=== PATIENT | female | born 1985 | race African-American/Black ===

== ENCOUNTER 2016-08-12 22:51 | Emergency (ER) | payer SELFPAY ==
[2016-08-13] MEDS ORDERED: ACETAMINOPHEN 325 MG TABLET PO ONE (01:07)
[2016-08-13] MEDS ORDERED: ONDANSETRON ODT 4 MG TAB (6 TAB/DSPK) PO PRN (02:05)
[2016-08-13] MEDS ORDERED: HYDROCODONE/ACETAMINOPHEN 5-325 MG 6 TAB/DSPK PO PRN (02:05)
--- NOTE | 2016-08-13 02:05 | ER Document Report ---
ED General - General Chief Complaint: Sinus Pain Stated Complaint: SORE THROAT/HEADACHE Notes: Patient is a 31-year-old female with past medical history of chronic sinusitis who presents with several years of postnasal drip, bilateral sinus pressure that is worsened over the last 3-4 days. States she's been trying over-the- counter pain medications with no relief of her pain. Nothing worsens her symptoms. Denies any associated fever, difficulty breathing, passing out, or altered mental status. She describes the pain as being a constant, dull throbbing pain over her bilateral maxillary sinuses. She's not see her primary care physician regarding today's concerns. TRAVEL OUTSIDE OF THE [place] IN LAST 30 DAYS: No - Related Data Allergies/Adverse Reactions: clindamycin [Clindamycin] Allergy (Intermediate, Verified 09/20/15 18:33) burning, SOB cephalexin [Cephalexin] Allergy (Verified 09/20/15 18:33) Penicillins Allergy (Verified 09/20/15 18:33) naproxen [From Naprosyn] Adverse Reaction (Verified 09/20/15 18:33) VOMITING Past Medical History - General Information source: Patient - Social History Smoking Status: Current Every Day Smoker Frequency of alcohol use: None Drug Abuse: None Lives with: Spouse/Significant other Family History: Reviewed & Not Pertinent Patient has suicidal ideation: No Patient has homicidal ideation: No Neurological Medical History: Denies: Hx Migraine Renal/ Medical History: Denies: Hx Peritoneal Dialysis Surgical Hx: Negative - Immunizations Hx Diphtheria, Pertussis, Tetanus Vaccination: Yes Review of Systems - Review of Systems Notes: Constitutional: Negative for fever. HENT: Negative for sore throat. Positive for sinus pain Eyes: Negative for visual changes. Cardiovascular: Negative for chest pain. Respiratory: Negative for shortness of breath. Gastrointestinal: Negative for abdominal pain, vomiting or diarrhea. Genitourinary: Negative for dysuria. Musculoskeletal: Negative for back pain. Skin: Negative for rash. Neurological: Negative for headaches, weakness or numbness. 10 point ROS negative except as marked above and in HPI. Physical Exam - Vital signs Vitals: Temp Pulse Resp BP 98.0 F 89 18 136/74 H 08/12/16 23:14 08/12/16 23:14 08/12/16 23:14 08/12/16 23:14 Interpretation: Normal Notes: PHYSICAL EXAMINATION: GENERAL: Well-appearing, well-nourished and in no acute distress. HEAD: Atraumatic, normocephalic. EYES: Pupils equal round and reactive to light, extraocular movements intact, sclera anicteric, conjunctiva are normal. ENT: nares patent, nasal turbinates erythematous bilaterally, pain on palpation of the maxillary sinus bilaterally; oropharynx clear without exudates. Moist mucous membranes. NECK: Normal range of motion, supple without lymphadenopathy LUNGS: Breath sounds clear to auscultation bilaterally and equal. No wheezes rales or rhonchi. HEART: Regular rate and rhythm without murmurs ABDOMEN: Soft, nontender, normoactive bowel sounds. No guarding, no rebound. No masses appreciated. EXTREMITIES: Normal range of motion, no pitting or edema. No cyanosis. NEUROLOGICAL: No focal neurological deficits. Moves all extremities spontaneously and on command. PSYCH: Normal mood, normal affect. SKIN: Warm, Dry, normal turgor, no rashes or lesions noted. Course - Re-evaluation Re-evalutation: 08/13/16 02:02 Patient presents with bilateral sinus pain, postnasal drip, and nasal congestion has been ongoing for months getting worse over the last several weeks. She is overall nontoxic in appearance, vitals within normal limits. No acute distress. Nasal turbinates are engorged and erythematous bilaterally. She has pain on palpation of the bilateral maxillary sinuses. Will trial a course of antibiotics although I discussed with patient that there is a very good chance that this is allergic versus viral in origin. I have also recommended she follow-up with ENT given that her symptoms have been so chronic in duration. At this time will discharge with return precautions and follow-up recommendations. Verbal discharge instructions given a the bedside and opportunity for questions given. Medication warnings reviewed. Patient is in agreement with this plan and has verbalized understanding of return precautions and the need for primary care follow-up in the next 24-72 hours. - Vital Signs Vital signs: Temp Pulse Resp BP Pulse Ox 98.0 F 89 18 136/74 H 08/12/16 23:14 08/12/16 23:14 08/12/16 23:14 08/12/16 23:14 Discharge - Discharge Clinical Impression: Sinusitis Qualifiers: Sinusitis location: maxillary Chronicity: chronic Qualified Code(s): J32.0 - Chronic maxillary sinusitis Condition: Good Disposition: HOME, SELF-CARE Additional Instructions: Please take antibiotic as directed. Follow-up with the ear, nose and throat specialist at your earliest ability. Return if you develop a fever of greater than 101F, pass out, have worsening pain, or have any other symptoms that are concerning to you. Prescriptions: Doxycycline Hyclate 100 mg PO BID #14 capsule
[2016-08-13 02:48] VITALS: BP 133/78
== END 2016-08-13 02:30 | disposition home or self-care (01) ==
LOC: ER 22:51
DX: J32.0 Chronic maxillary sinusitis (principal); R51 Headache; J02.9 Acute pharyngitis, unspecified; F17.210 Nicotine dependence, cigarettes, uncomplicated
CPT/HCPCS: 99282

== ENCOUNTER 2016-08-14 19:35 | Emergency (ER) | payer SELFPAY ==
[2016-08-14] MEDS ORDERED: PROMETHAZINE HCL 25 MG TABLET PO ONE (19:44)
--- NOTE | 2016-08-14 19:44 | ER Document Report ---
ED Medical Screen (RME) - General Stated Complaint: VOMITING Notes: patient is a 31 year old female p/w vomiting that started today. patient states that she felt an abscess in her mouth burst today and since then shes been throwing up. on doxycycline for sinus infection I have greeted and performed a rapid initial assessment of this patient. A comprehensive ED assessment and evaluation of the patient, analysis of test results and completion of the medical decision making process will be conducted by additional ED providers. TRAVEL OUTSIDE OF THE [place] IN LAST 30 DAYS: No - Related Data Allergies/Adverse Reactions: clindamycin [Clindamycin] Allergy (Intermediate, Verified 08/14/16 19:41) burning, SOB cephalexin [Cephalexin] Allergy (Verified 08/14/16 19:41) Penicillins Allergy (Verified 08/14/16 19:41) naproxen [From Naprosyn] Adverse Reaction (Verified 08/14/16 19:41) VOMITING Past Medical History - Social History Family history: Reviewed & Not Pertinent Neurological Medical History: Denies: Hx Migraine Renal/ Medical History: Denies: Hx Peritoneal Dialysis - Immunizations Hx Diphtheria, Pertussis, Tetanus Vaccination: Yes
[2016-08-14 19:59] LABS: ABSOLUTE BASOPHILS # (AUTO) 0.1 10^3/uL (0.0-0.2); ABSOLUTE EOSINOPHILS # (AUTO) 0.1 10^3/uL (0.0-0.6); ABSOLUTE MONOCYTES (AUTO) 0.8 10^3/uL (0.1-1.4); ABSOLUTE NEUT (AUTO) 4.9 10^3/uL (1.7-8.2); BASOPHILS % (AUTO) 0.6 % (0-2); EOSINOPHILS % (AUTO) 1.1 % (0-6); HEMATOCRIT 40.2 % (36.0-47.0); HEMOGLOBIN 12.8 g/dL (12.0-15.5); HGB HCT DIFFERENCE -1.8; LYMPHOCYTES % (AUTO) 33.7 % (13-45); MEAN CORPUSCULAR HEMOGLOBIN 24.6 pg (27.0-33.4); MEAN CORPUSCULAR HGB CONC 31.8 g/dL (32.0-36.0); MEAN CORPUSCULAR VOLUME 77 fl (80-97); MONOCYTES % (AUTO) 9.5 % (3-13); RED CELL DISTRIBUTION WIDTH 13.7 % (11.5-14.0); SEGMENTED NEUTROPHILS % (AUTO) 55.1 % (42-78); WHITE BLOOD COUNT 8.9 10^3/uL (4.0-10.5)
[2016-08-14 20:28] LABS: ALANINE AMINOTRANSFERASE 22 U/L (9-52); ALBUMIN 3.7 g/dL (3.5-5.0); ALKALINE PHOSPHATASE 81 U/L (38-126); ANION GAP 11 (5-19); ASPARTATE AMINO TRANSFERASE 20 U/L (14-36); BILIRUBIN,TOTAL 0.4 mg/dL (0.2-1.3); BLOOD UREA NITROGEN 9 mg/dL (7-20); CARBON DIOXIDE 27 mmol/L (22-30); CHLORIDE 103 mmol/L (98-107); CREATININE RESULT 0.77 mg/dL (0.52-1.25); GLUCOSE 118 mg/dL (75-110); LIPASE 116.3 U/L (23-300); POTASSIUM 3.8 mmol/L (3.6-5.0); TOTAL PROTEIN 7.1 g/dL (6.3-8.2)
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
[2016-08-14 22:19] VITALS: BP 132/84
== END 2016-08-14 21:38 | disposition home or self-care (01) ==
LOC: ER 19:35
DX: K04.7 Periapical abscess without sinus (principal); R11.2 Nausea with vomiting, unspecified; F17.200 Nicotine dependence, unspecified, uncomplicated; Z88.0 Allergy status to penicillin; Z88.3 Allergy status to other anti-infective agents
CPT/HCPCS: 36415; 80053; 83690; 85025; 99283

== ENCOUNTER 2016-10-29 18:57 | Emergency (ER) | payer SELFPAY ==
[2016-10-29 19:05] VITALS: BP 134/77
[2016-10-29] MEDS ORDERED: ONDANSETRON 4 MG TAB.RAPDIS PO ONE (19:58)
--- NOTE | 2016-10-29 19:58 | ER Document Report ---
ED Medical Screen (RME) - General Chief Complaint: Vomiting Stated Complaint: HEADACHE Mode of Arrival: Ambulatory Information source: Patient Notes: This is a 31-year-old female who presents to the ER for nausea vomiting and headache. She states that the symptoms have been recurrent for the past several months and that she's been seen before for the same. Today she states that she developed a left-sided headache and about 1500. She took 2 BC powders and the pain resolved in about an hour and a half. However at that time she began having nausea and vomiting. Her last oral intake was a Tanja's meal prior to the headache. She is now feeling somewhat better however she is concerned that these vomiting episodes continue to recur. She states she cannot follow-up with a primary care physician because she has not injured it. She denies any fevers or chills. I have greeted and performed a rapid initial assessment of this patient. A comprehensive ED assessment and evaluation of the patient, analysis of test results and completion of the medical decision making process will be conducted by additional ED providers. TRAVEL OUTSIDE OF THE [place] IN LAST 30 DAYS: No - Related Data Allergies/Adverse Reactions: clindamycin [Clindamycin] Allergy (Intermediate, Verified 08/14/16 19:41) burning, SOB cephalexin [Cephalexin] Allergy (Verified 08/14/16 19:41) Penicillins Allergy (Verified 08/14/16 19:41) naproxen [From Naprosyn] Adverse Reaction (Verified 08/14/16 19:41) VOMITING Past Medical History - Social History Family history: Reviewed & Not Pertinent Neurological Medical History: Denies: Hx Migraine Renal/ Medical History: Denies: Hx Peritoneal Dialysis - Immunizations Hx Diphtheria, Pertussis, Tetanus Vaccination: Yes Physical Exam - Vital signs Vitals: Temp Pulse Resp BP Pulse Ox 98.5 F 80 16 134/77 H 98 10/29/16 19:02 10/29/16 19:02 10/29/16 19:02 10/29/16 19:02 10/29/16 19:02 Course - Vital Signs Vital signs: Temp Pulse Resp BP Pulse Ox 98.5 F 80 16 134/77 H 98 10/29/16 19:02 10/29/16 19:02 10/29/16 19:02 10/29/16 19:02 10/29/16 19:02
[2016-10-29 20:25] LABS: APPEARANCE,URINE SLIGHTLY-CLOUDY; BILIRUBIN,URINE NEGATIVE (NEGATIVE); GLUCOSE, URINE NEGATIVE (NEGATIVE); KETONES,URINE NEGATIVE (NEGATIVE); LEUKOCYTE ESTERASE,URINE MODERATE (NEGATIVE); NITRITE,URINE NEGATIVE (NEGATIVE); PROTEIN,URINE NEGATIVE (NEGATIVE); UROBILINOGEN,URINE NEGATIVE mg/dL (<2.0)
== END 2016-10-29 23:00 | disposition left against medical advice (07) ==
LOC: ER 18:57
DX: R11.2 Nausea with vomiting, unspecified (principal); R51 Headache; Z88.0 Allergy status to penicillin; Z88.3 Allergy status to other anti-infective agents
CPT/HCPCS: 99281; 81001; S0119

== ENCOUNTER 2016-11-12 07:29 | Emergency (ER) | payer SELFPAY ==
--- NOTE | 2016-11-12 07:37 | ER Document Report ---
ED Skin Rash/Insect Bite/Abscs - General Chief Complaint: Abscess Stated Complaint: POSSIBLE ABSCESS Time Seen by Provider: 11/12/16 07:37 Mode of Arrival: Ambulatory Information source: Patient Notes: 31-year-old nondiabetic female complaining of an abscess on the right buttocks inferior to the labia majora for 3 days. Has had to have abscess incised in the past. TRAVEL OUTSIDE OF THE [place] IN LAST 30 DAYS: No - Related Data Allergies/Adverse Reactions: clindamycin [Clindamycin] Allergy (Intermediate, Verified 08/14/16 19:41) burning, SOB cephalexin [Cephalexin] Allergy (Verified 08/14/16 19:41) Penicillins Allergy (Verified 08/14/16 19:41) naproxen [From Naprosyn] Adverse Reaction (Verified 08/14/16 19:41) VOMITING Past Medical History - General Information source: Patient - Social History Smoking Status: Never Smoker Frequency of alcohol use: None Drug Abuse: None Lives with: Family Family History: Reviewed & Not Pertinent Patient has suicidal ideation: No Patient has homicidal ideation: No - Medical History Medical History: Negative Neurological Medical History: Denies: Hx Migraine Renal/ Medical History: Denies: Hx Peritoneal Dialysis Surgical Hx: Negative - Immunizations Hx Diphtheria, Pertussis, Tetanus Vaccination: Yes Review of Systems - Review of Systems Constitutional: No symptoms reported EENT: No symptoms reported Cardiovascular: No symptoms reported Respiratory: No symptoms reported Gastrointestinal: No symptoms reported Genitourinary: No symptoms reported Female Genitourinary: No symptoms reported Musculoskeletal: No symptoms reported Skin: See HPI Hematologic/Lymphatic: No symptoms reported Neurological/Psychological: No symptoms reported Physical Exam - Vital signs Vitals: Pulse Resp BP Pulse Ox 111 H 16 123/75 99 11/12/16 07:33 11/12/16 07:33 11/12/16 07:33 11/12/16 07:33 Interpretation: Normal - General General appearance: Appears well, Alert - HEENT Head: Normocephalic, Atraumatic Eyes: Normal Pupils: PERRL Neck: Supple - Respiratory Respiratory status: No respiratory distress Chest status: Nontender Breath sounds: Normal Chest palpation: Normal - Cardiovascular Rhythm: Regular Heart sounds: Normal auscultation Murmur: No - Abdominal Inspection: Normal Distension: No distension Bowel sounds: Normal Tenderness: Nontender Organomegaly: No organomegaly - Back Back: Normal, Nontender - Extremities General upper extremity: Normal inspection, Nontender, Normal color, Normal ROM , Normal temperature General lower extremity: Normal inspection, Nontender, Normal color, Normal ROM , Normal temperature, Normal weight bearing. No: Iliana's sign - Neurological Neuro grossly intact: Yes Cognition: Normal Orientation: AAOx4 Jenny Coma Scale Eye Opening: Spontaneous [place]ope Coma Scale Verbal: Oriented Jenny Coma Scale Motor: Obeys Commands Jenny Coma Scale Total: 15 Speech: Normal Motor strength normal: LUE, RUE, LLE, RLE Sensory: Normal - Psychological Associated symptoms: Normal affect, Normal mood - Skin Skin Temperature: Warm Skin Moisture: Dry Skin Color: Normal Skin irregularity: Abscess Location of irregularity: Other - right buttocks inferior to labia majora in hairline Course - Vital Signs Vital signs: Temp Pulse Resp BP Pulse Ox 98.1 F 111 H 16 123/75 99 11/12/16 08:29 11/12/16 07:33 11/12/16 07:33 11/12/16 07:33 11/12/16 07:33 Procedures - Incision and Drainage Right Buttock Time completed: 09:14 Type: Simple Anesthetic type: 1% Lidocaine mL's of anesthetic: 3 Blade size: 11 I&D procedure: Betadine prep applied Incision Method: Incision made by scalpel Amount/type of drainage: large pus and sebaceous matter Discharge - Discharge Clinical Impression: abscess I & D Condition: Good Disposition: HOME, SELF-CARE Instructions: Abscess ([facility]), Post Incision and Drainage, Trimethoprim-Sulfa ( [facility]), Warm Packs ([facility]) Additional Instructions: warm compress dry dressing to er any concerns Please complete the patient satisfaction survey if you get one, and return it.. If you do not receive a survey, then you can go to the [facility] website, [email or web address] and place your comments about your very good care. Thank you very much. It was a pleasure being your medical provider today. Prescriptions: Ibuprofen [Motrin 800 mg Tablet] 800 mg PO Q8HP PRN #30 tablet PRN Reason: Sulfamethoxazole/Trimethoprim [Sulfamethoxazole-Tmp Ds Tablet] 1 each PO BID # 14 tablet
[2016-11-12] MEDS ORDERED: SULFAMETHOXAZOLE/TRIMETHOPRIM 800-160 MG TABLET PO ONE (07:45)
[2016-11-12] MEDS ORDERED: LIDOCAINE 4%/TETRACAINE 0.5%/EPI 0.18% 5 ML TOPICAL SOLN TOP ONE (07:45)
[2016-11-12] MEDS ORDERED: IBUPROFEN 800 MG TABLET PO ONE (07:45)
[2016-11-12] MEDS ORDERED: ONDANSETRON 4 MG TAB.RAPDIS PO ONE (07:45)
[2016-11-12 09:31] VITALS: BP 127/69
== END 2016-11-12 09:31 | disposition home or self-care (01) ==
LOC: ER 07:29
PROC: 0H98XZZ Drainage of Buttock Skin, External Approach (ICD-10-PCS; principal; 2016-11-12)
DX: L02.31 Cutaneous abscess of buttock (principal); Z88.1 Allergy status to other antibiotic agents; Z88.0 Allergy status to penicillin
CPT/HCPCS: 10060; 99283; S0119; J3490

== ENCOUNTER → 2016-12-12 | Outpatient (CLI) | payer OTHER ==
[2016-12-12 12:11] LABS: ABSOLUTE EOSINOPHILS # (AUTO) 0.1 10^3/uL (0.0-0.6); ABSOLUTE LYMPHOCYTES (AUTO) 1.9 10^3/uL (0.5-4.7); ABSOLUTE MONOCYTES (AUTO) 0.3 10^3/uL (0.1-1.4); ABSOLUTE NEUT (AUTO) 3.3 10^3/uL (1.7-8.2); BASOPHILS % (AUTO) 0.7 % (0-2); EOSINOPHILS % (AUTO) 1.1 % (0-6); HEMATOCRIT 39.7 % (36.0-47.0); HEMOGLOBIN 12.4 g/dL (12.0-15.5); HGB HCT DIFFERENCE -2.5; LYMPHOCYTES % (AUTO) 33.6 % (13-45); MEAN CORPUSCULAR HEMOGLOBIN 24.5 pg (27.0-33.4); MEAN CORPUSCULAR HGB CONC 31.2 g/dL (32.0-36.0); MEAN CORPUSCULAR VOLUME 79 fl (80-97); MONOCYTES % (AUTO) 5.9 % (3-13); RED BLOOD COUNT 5.05 10^6/uL (3.72-5.28); RED CELL DISTRIBUTION WIDTH 14.4 % (11.5-14.0); SEGMENTED NEUTROPHILS % (AUTO) 58.7 % (42-78); WHITE BLOOD COUNT 5.7 10^3/uL (4.0-10.5)
[2016-12-12 12:41] LABS: ALANINE AMINOTRANSFERASE 23 U/L (9-52); ALBUMIN 3.9 g/dL (3.5-5.0); ALKALINE PHOSPHATASE 74 U/L (38-126); ANION GAP 11 (5-19); ASPARTATE AMINO TRANSFERASE 18 U/L (14-36); BILIRUBIN,DIRECT 0.3 mg/dL (0.0-0.4); BILIRUBIN,TOTAL 0.5 mg/dL (0.2-1.3); BLOOD UREA NITROGEN 7 mg/dL (7-20); CALCIUM 9.6 mg/dL (8.4-10.2); CARBON DIOXIDE 24 mmol/L (22-30); CHLORIDE 106 mmol/L (98-107); CREATININE RESULT 0.74 mg/dL (0.52-1.25); GLUCOSE 92 mg/dL (75-110); POTASSIUM 4.2 mmol/L (3.6-5.0); TOTAL PROTEIN 7.2 g/dL (6.3-8.2)
== END ==
LOC: CCC 11:02
DX: R11.0 Nausea (principal); G43.909 Migraine, unspecified, not intractable, without status migrainosus
CPT/HCPCS: 36415; 80053; 84443; 84703; 85025

== ENCOUNTER 2017-02-05 15:33 | Emergency (ER) | payer OTHER ==
[2017-02-05] MEDS ORDERED: ONDANSETRON 4 MG TAB.RAPDIS SL ONE (16:32)
[2017-02-05] MEDS ORDERED: KETOROLAC TROMETHAMINE 60 MG/2 ML SDV IM ONE (16:33)
--- NOTE | 2017-02-05 16:34 | ER Document Report ---
ED Medical Screen (RME) - General Chief Complaint: Vomiting Stated Complaint: VOMITING, HEADACHE Time Seen by Provider: 02/05/17 16:04 Mode of Arrival: Ambulatory Information source: Patient TRAVEL OUTSIDE OF THE [place] IN LAST 30 DAYS: No - HPI Patient complains to provider of: Migraine headache, nausea and vomiting Onset: Other - 3 days Notes: 02/05/17 16:34 Is a 31-year-old male who presents to the emergency room complaining of a migraine headache 3 days with nausea and vomiting that started today, she denies pain, no fever, no head injury, no sick contacts, no diarrhea - Related Data Allergies/Adverse Reactions: clindamycin [Clindamycin] Allergy (Intermediate, Verified 02/05/17 16:29) burning, SOB cephalexin [Cephalexin] Allergy (Verified 02/05/17 16:29) Penicillins Allergy (Verified 02/05/17 16:29) naproxen [From Naprosyn] Adverse Reaction (Verified 02/05/17 16:29) VOMITING Past Medical History - Social History Family history: Reviewed & Not Pertinent Neurological Medical History: Denies: Hx Migraine Renal/ Medical History: Denies: Hx Peritoneal Dialysis - Immunizations Hx Diphtheria, Pertussis, Tetanus Vaccination: Yes Physical Exam - Vital signs Vitals: Temp Pulse Resp BP Pulse Ox 98.6 F 91 14 126/90 H 100 02/05/17 15:36 02/05/17 15:36 02/05/17 15:36 02/05/17 15:36 02/05/17 15:36 Course - Vital Signs Vital signs: Temp Pulse Resp BP Pulse Ox 98.6 F 91 14 126/90 H 100 02/05/17 15:36 02/05/17 15:36 02/05/17 15:36 02/05/17 15:36 02/05/17 15:36
[2017-02-05 17:02] LABS: APPEARANCE,URINE CLOUDY; BILIRUBIN,URINE NEGATIVE (NEGATIVE); GLUCOSE, URINE NEGATIVE (NEGATIVE); KETONES,URINE NEGATIVE (NEGATIVE); LEUKOCYTE ESTERASE,URINE SMALL (NEGATIVE); NITRITE,URINE NEGATIVE (NEGATIVE); PROTEIN,URINE NEGATIVE (NEGATIVE); UROBILINOGEN,URINE NEGATIVE mg/dL (<2.0)
[2017-02-05 17:19] LABS: ABSOLUTE LYMPHOCYTES (AUTO) 1.4 10^3/uL (0.5-4.7); ABSOLUTE MONOCYTES (AUTO) 0.4 10^3/uL (0.1-1.4); ABSOLUTE NEUT (AUTO) 8.5 10^3/uL (1.7-8.2); BASOPHILS % (AUTO) 0.3 % (0-2); EOSINOPHILS % (AUTO) 0.4 % (0-6); HEMATOCRIT 39.5 % (36.0-47.0); HEMOGLOBIN 12.5 g/dL (12.0-15.5); LYMPHOCYTES % (AUTO) 13.1 % (13-45); MEAN CORPUSCULAR HGB CONC 31.6 g/dL (32.0-36.0); MEAN CORPUSCULAR VOLUME 79 fl (80-97); RED BLOOD COUNT 4.99 10^6/uL (3.72-5.28); RED CELL DISTRIBUTION WIDTH 14.6 % (11.5-14.0); SEGMENTED NEUTROPHILS % (AUTO) 82.2 % (42-78); WHITE BLOOD COUNT 10.4 10^3/uL (4.0-10.5)
[2017-02-05 17:39] LABS: ALANINE AMINOTRANSFERASE 26 U/L (9-52); ALBUMIN 4.2 g/dL (3.5-5.0); ALKALINE PHOSPHATASE 80 U/L (38-126); ANION GAP 9 (5-19); ASPARTATE AMINO TRANSFERASE 19 U/L (14-36); BILIRUBIN,DIRECT 0.2 mg/dL (0.0-0.4); BILIRUBIN,TOTAL 0.4 mg/dL (0.2-1.3); BLOOD UREA NITROGEN 4 mg/dL (7-20); CALCIUM 9.6 mg/dL (8.4-10.2); CARBON DIOXIDE 28 mmol/L (22-30); CHLORIDE 103 mmol/L (98-107); CREATININE RESULT 0.68 mg/dL (0.52-1.25); GLUCOSE 108 mg/dL (75-110); LIPASE 93.3 U/L (23-300); POTASSIUM 4.1 mmol/L (3.6-5.0); SODIUM 140.3 mmol/L (137-145); TOTAL PROTEIN 7.3 g/dL (6.3-8.2)
[2017-02-05] MEDS ORDERED: ONDANSETRON ODT 4 MG TAB (6 TAB/DSPK) PO PRN (18:22)
--- NOTE | 2017-02-05 18:23 | ER Document Report ---
ED GI/ - General Chief Complaint: Vomiting Stated Complaint: VOMITING, HEADACHE Time Seen by Provider: 02/05/17 16:04 Mode of Arrival: Ambulatory Information source: Patient TRAVEL OUTSIDE OF THE [place] IN LAST 30 DAYS: No - HPI Patient complains to provider of: Vomiting Onset: Other - 3 days Timing/Duration: Gradual, Persistent Quality of pain: Achy, Fullness, Pressure Severity at maximum: Moderate Severity in ED: Moderate Pain Level: 3 Associated symptoms: Nausea, Vomiting Exacerbated by: Denies Relieved by: Denies Notes: 02/05/17 19:19 Is a 31-year-old male who presents to the emergency room complaining of a migraine headache 3 days with nausea and vomiting that started today, she denies pain, no fever, no head injury, no sick contacts, no diarrhea - Related Data Allergies/Adverse Reactions: clindamycin [Clindamycin] Allergy (Intermediate, Verified 02/05/17 16:29) burning, SOB cephalexin [Cephalexin] Allergy (Verified 02/05/17 16:29) Penicillins Allergy (Verified 02/05/17 16:29) naproxen [From Naprosyn] Adverse Reaction (Verified 02/05/17 16:29) VOMITING Past Medical History - General Information source: Patient - Social History Smoking Status: Unknown if Ever Smoked Family History: Reviewed & Not Pertinent Neurological Medical History: Denies: Hx Migraine Renal/ Medical History: Denies: Hx Peritoneal Dialysis - Immunizations Hx Diphtheria, Pertussis, Tetanus Vaccination: Yes Review of Systems - Review of Systems Constitutional: No symptoms reported EENT: No symptoms reported Cardiovascular: No symptoms reported Respiratory: No symptoms reported Gastrointestinal: See HPI Genitourinary: No symptoms reported Female Genitourinary: No symptoms reported Musculoskeletal: No symptoms reported Skin: No symptoms reported Hematologic/Lymphatic: No symptoms reported Neurological/Psychological: See HPI -: Yes All other systems reviewed and negative Physical Exam - Vital signs Vitals: Temp Pulse Resp BP Pulse Ox 98.6 F 91 14 126/90 H 100 02/05/17 15:36 02/05/17 15:36 02/05/17 15:36 02/05/17 15:36 02/05/17 15:36 Interpretation: Normal - General General appearance: Appears well, Alert - HEENT Head: Normocephalic, Atraumatic Eyes: Normal Pupils: PERRL - Respiratory Respiratory status: No respiratory distress Chest status: Nontender Breath sounds: Normal Chest palpation: Normal - Cardiovascular Rhythm: Regular Heart sounds: Normal auscultation Murmur: No - Abdominal Inspection: Normal Distension: No distension Bowel sounds: Normal Tenderness: Nontender Organomegaly: No organomegaly - Back Back: Normal, Nontender - Extremities General upper extremity: Normal inspection, Nontender, Normal color, Normal ROM , Normal temperature General lower extremity: Normal inspection, Nontender, Normal color, Normal ROM , Normal temperature, Normal weight bearing. No: Iliana's sign - Neurological Neuro grossly intact: Yes Cognition: Normal Orientation: AAOx4 Jenny Coma Scale Eye Opening: Spontaneous [place] Coma Scale Verbal: Oriented [place] Coma Scale Motor: Obeys Commands [place] Coma Scale Total: 15 Speech: Normal Motor strength normal: LUE, RUE, LLE, RLE Sensory: Normal - Psychological Associated symptoms: Normal affect, Normal mood - Skin Skin Temperature: Warm Skin Moisture: Dry Skin Color: Normal Course - Re-evaluation Re-evalutation: 02/05/17 18:22 Patient reports feeling much better at this point in time, labs are unremarkable and were discussed with patient, she was discharged with a Zofran Dosepak and information for follow-up, advised to return if any additional concerns, patient acknowledges understanding and agreement with this plan - Vital Signs Vital signs: Temp Pulse Resp BP Pulse Ox 98.7 F 90 16 126/88 H 100 02/05/17 18:47 02/05/17 18:47 02/05/17 18:47 02/05/17 18:47 02/05/17 18:47 - Laboratory Result Diagrams: 02/05/17 17:08 02/05/17 17:08 Laboratory results interpreted by me: 02/05/17 02/05/17 02/05/17 16:50 17:08 17:08 MCV 79 L MCH 25.0 L MCHC 31.6 L RDW 14.6 H Seg Neutrophils % 82.2 H Absolute Neutrophils 8.5 H BUN 4 L Urine Blood SMALL H Ur Leukocyte Esterase SMALL H Discharge - Discharge Clinical Impression: Nausea and vomiting Qualifiers: Vomiting type: unspecified Vomiting Intractability: non-intractable Qualified Code(s): R11.2 - Nausea with vomiting, unspecified Migraine headache Qualifiers: Migraine type: unspecified Status migrainosus presence: without status migrainosus Intractability: not intractable Qualified Code(s): G43.909 - Migraine, unspecified, not intractable, without status migrainosus Condition: Stable Disposition: HOME, SELF-CARE Instructions: Antinausea Medication ([facility]), Vomiting ([facility]) Additional Instructions: Follow up with your primary care provider in one to 2 days. Return to the emergency room immediately if symptoms worsen or any additional concerns. Forms: Return to Work
[2017-02-05 19:05] VITALS: BP 126/88
== END 2017-02-05 18:47 | disposition home or self-care (01) ==
LOC: ER 15:33
DX: G43.909 Migraine, unspecified, not intractable, without status migrainosus (principal); R11.2 Nausea with vomiting, unspecified
CPT/HCPCS: 99283; 96372; 36415; 87086; 83690; 85025; 81025; 80053; 81001; J1885; S0119

== ENCOUNTER 2017-07-01 14:21 | Emergency (ER) | payer SELFPAY ==
[2017-07-01 14:45] VITALS: BP 131/65
--- NOTE | 2017-07-01 15:33 | ER Document Report ---
HPI - HPI Patient complains to provider of: Sore throat Pain Level: 4 Context: Patient is a 32-year-old female presents emergency department complaining of sinus drainage and sore throat for the past 2-3 days. She denies any sinus congestion, ear pain, fevers, chills, cough, shortness of breath, difficulty swallowing, difficulty breathing or chest pain. Patient is a smoker and does smoke marijuana. - REPRODUCTIVE Reproductive: DENIES: : Past Medical History - Social History Smoking Status: Current Every Day Smoker Family History: Reviewed & Not Pertinent Neurological Medical History: Denies: Hx Migraine Renal/ Medical History: Denies: Hx Peritoneal Dialysis - Immunizations Hx Diphtheria, Pertussis, Tetanus Vaccination: Yes Vertical Provider Document - CONSTITUTIONAL Agree With Documented VS: Yes Notes: PHYSICAL EXAM GENERAL: Alert, interacts well. HEENT: NCAT, pale conjunctiva, extraocular movements intact, pupils PERRL. external ear normal, no evidence of external auditory canal tenderness, blood/ drainage, cerumen impaction, TM intact without evidence of effusion, bulging, injection, MMM, Uvula midline. Airway patent. No evidence of tonsillar enlargement, peritonsillar abscess, retropharyngeal abscess. LUNGS: Clear to auscultation bilaterally, no wheezes, rales, or rhonchi. No respiratory distress. HEART: Regular rate and rhythm. No murmurs, gallops, or rubs. EXTREMITIES: Moves all 4 extremities spontaneously. No edema, radial and dorsalis pedis pulses 2/4 bilaterally. No cyanosis. NEUROLOGICAL: Alert and oriented x4. Normal speech. PSYCH: Normal affect, normal mood. SKIN: Warm, dry, normal turgor. No rashes or lesions noted. - INFECTION CONTROL TRAVEL OUTSIDE OF THE [place] IN LAST 30 DAYS: No - RESPIRATORY O2 Sat by Pulse Oximetry: 100 Course - Re-evaluation Re-evalutation: 07/01/17 16:28 Presentation is most consistent with a viral upper respiratory infection. Patient is overall well appearance, vitals within normal limits, well-hydrated. Patient denies any headache, neck pain, and has no evidence of meningismus on examination. Lungs are clear bilaterally. No evidence of respiratory distress. Based on clinical exam and history, I do not suspect an acute pneumonia, meningitis, strep pharyngitis, or an acute encephalitis. No laboratory or imaging testing is indicated at this time. Will discharge patient with return precautions and followup recommendations. They are in agreement this plan have verbalized understanding return precautions. - Vital Signs Vital signs: Temp Pulse Resp BP Pulse Ox 98.5 F 84 16 131/65 H 100 07/01/17 14:39 07/01/17 14:39 07/01/17 14:39 07/01/17 14:39 07/01/17 14:39 Discharge - Discharge Clinical Impression: Sore throat Condition: Good Disposition: HOME, SELF-CARE Instructions: Sore Throat ([facility]), Upper Respiratory Illness ([facility]) Additional Instructions: Please continue to take your home Claritin you can also add Mucinex DM. Please be sure to drink plenty of clear fluids. Your symptoms are most likely due to a viral infection it should resolve over the next 7-14 days. You should take zwuh-[id number] guanfacine per bottle instructions to help thin the mucus. For nasal congestion: I would recommend that you get [id number] oxymetazoline also known is afrin. Use only per bottle instructions and be sure to never use this for more than 3 days if you can develop severe rebound congestion. You may also use tylenol or ibuprofen as needed for aches and thorat discomfort. Please be sure to drink plenty of fluids and get rest. Return to the emergency department he began having difficulty breathing, chest pain, persistent vomiting, or any other symptoms that are concerning to you. Forms: Return to Work
[2017-07-01 16:22] LABS: A TYPE INFLUENZA AG NEGATIVE (NEGATIVE); B INFLUENZA AG NEGATIVE (NEGATIVE)
[2017-07-01] MEDS ORDERED: PSEUDOEPHEDRINE HCL 30 MG TABLET PO ONE (16:31)
[2017-07-01] MEDS ORDERED: GUAIFENESIN 600 MG TABLET.SA PO ONE (16:31)
== END 2017-07-01 16:48 | disposition home or self-care (01) ==
LOC: ER 14:21
DX: J02.9 Acute pharyngitis, unspecified (principal); J34.89 Other specified disorders of nose and nasal sinuses; F17.200 Nicotine dependence, unspecified, uncomplicated
CPT/HCPCS: 87070; 87077; 87804; 87880; 99283

== ENCOUNTER 2017-11-11 20:19 | Emergency (ER) | payer SELFPAY ==
--- NOTE | 2017-11-11 20:59 | ER Document Report ---
ED General - General Chief Complaint: Abdominal Pain/ LANDRUM/ N/V Stated Complaint: ABDOMINAL PAIN Time Seen by Provider: 11/11/17 20:53 Mode of Arrival: Ambulatory Information source: Patient TRAVEL OUTSIDE OF THE [place] IN LAST 30 DAYS: No - HPI Onset: This morning - FEW HOURS AFTER ARISING Onset/Duration: Gradual Quality of pain: Achy, Cramping - IN ABDOMEN, Dull Associated symptoms: Chills, Nausea, Vomiting. denies: Diarrhea Exacerbated by: Denies Relieved by: Denies Similar symptoms previously: Yes - ONCE, NOT RECENT Recently seen / treated by doctor: No - Related Data Allergies/Adverse Reactions: clindamycin [Clindamycin] Allergy (Intermediate, Verified 05/07/17 16:43) burning, SOB cephalexin [Cephalexin] Allergy (Verified 05/07/17 16:43) Penicillins Allergy (Verified 05/07/17 16:43) naproxen [From Naprosyn] Adverse Reaction (Verified 05/07/17 16:43) VOMITING Past Medical History - General Information source: Patient - Social History Smoking Status: Never Smoker Cigarette use (# per day): No Chew tobacco use (# tins/day): No Frequency of alcohol use: None Lives with: Spouse/Significant other Family History: Reviewed & Not Pertinent Patient has suicidal ideation: No Patient has homicidal ideation: No - Past Medical History Cardiac Medical History: Reports: None Pulmonary Medical History: Reports: None EENT Medical History: Reports: None Neurological Medical History: Reports: None. Denies: Hx Migraine Endocrine Medical History: Reports: None Renal/ Medical History: Reports: None. Denies: Hx Peritoneal Dialysis Malignancy Medical History: Reports: None GI Medical History: Reports: None Musculoskeltal Medical History: Reports None Psychiatric Medical History: Reports: None Surgical Hx: Negative - Immunizations Hx Diphtheria, Pertussis, Tetanus Vaccination: Yes Review of Systems - Review of Systems Constitutional: See HPI, Weight gain EENT: No symptoms reported Cardiovascular: No symptoms reported Respiratory: No symptoms reported Gastrointestinal: See HPI Genitourinary: No symptoms reported Female Genitourinary: No symptoms reported. denies: Musculoskeletal: No symptoms reported Skin: No symptoms reported Neurological/Psychological: No symptoms reported Physical Exam - Vital signs Interpretation: Normal. No: Tachycardic, Tachypneic, Febrile - General General appearance: Appears well, Alert In distress: None - HEENT Head: Normocephalic Eyes: Normal Conjunctiva: Normal Ears: Normal Nasal: Normal Mouth/Lips: Normal Mucous membranes: Normal - Respiratory Respiratory status: No respiratory distress Breath sounds: Normal - Cardiovascular Rhythm: Regular Heart sounds: Normal auscultation Murmur: No - Abdominal Inspection: Obese Bowel sounds: Hypoactive Tenderness: Tender - SLIGHT, RUQ - Back Back: Normal - Extremities General upper extremity: Normal inspection General lower extremity: Normal inspection. No: Tender, Edema - Neurological Neuro grossly intact: Yes Cognition: Normal Orientation: AAOx4 - Psychological Associated symptoms: Normal affect, Normal mood - Skin Skin Temperature: Warm Skin Moisture: Dry Skin Color: Normal Skin Turgor: Elastic Course - Re-evaluation Re-evalutation: 11/11/17 23:03 Patient reports nausea is modestly improved. Still having some intermittent abdominal cramping. Results of laboratory studies discussed. Diagnostic possibilities discussed. Treatment strategies discussed. - Laboratory Result Diagrams: 11/11/17 21:00 11/11/17 21:00 Laboratory results interpreted by me: 11/11/17 11/11/17 11/11/17 21:00 21:00 21:00 MCV 78 L MCH 24.8 L MCHC 31.6 L Total Bilirubin 0.1 L Urine Urobilinogen 2.0 H Discharge - Discharge Clinical Impression: Headache Qualifiers: Headache type: unspecified Headache chronicity pattern: acute headache Intractability: not intractable Qualified Code(s): R51 - Headache Abdominal pain Qualifiers: Abdominal location: upper abdomen, unspecified Qualified Code(s): R10.10 - Upper abdominal pain, unspecified Condition: Stable Disposition: HOME, SELF-CARE Instructions: Abdominal Pain ([facility]), Antinausea Medication ([facility]) Additional Instructions: REST, DRINK PLENTY OF FLUIDS. YOU MAY TAKE ZOFRAN IF NEEDED FOR NAUSEA CONTROL. YOU MAY TAKE TYLENOL IF NEEDED FOR PAIN. FOLLOW UP WITH YOUR PRIMARY CARE PROVIDER OR RETURN TO E.R. IF ANY WORSENING OR ANY NEW CONCERNS
[2017-11-11] MEDS ORDERED: NORMAL SALINE 500 ML IV ONE (21:09)
[2017-11-11 21:26] LABS: ABSOLUTE EOSINOPHILS # (AUTO) 0.1 10^3/uL (0.0-0.6); ABSOLUTE LYMPHOCYTES (AUTO) 1.5 10^3/uL (0.5-4.7); ABSOLUTE MONOCYTES (AUTO) 0.4 10^3/uL (0.1-1.4); ABSOLUTE NEUT (AUTO) 5.8 10^3/uL (1.7-8.2); BASOPHILS % (AUTO) 0.6 % (0-2); EOSINOPHILS % (AUTO) 0.9 % (0-6); HEMOGLOBIN 12.3 g/dL (12.0-15.5); LYMPHOCYTES % (AUTO) 19.3 % (13-45); MEAN CORPUSCULAR HEMOGLOBIN 24.8 pg (27.0-33.4); MEAN CORPUSCULAR HGB CONC 31.6 g/dL (32.0-36.0); MEAN CORPUSCULAR VOLUME 78 fl (80-97); MONOCYTES % (AUTO) 4.8 % (3-13); RED BLOOD COUNT 4.98 10^6/uL (3.72-5.28); SEGMENTED NEUTROPHILS % (AUTO) 74.4 % (42-78); TOTAL CELLS COUNTED % (AUTO) 100 %; WHITE BLOOD COUNT 7.8 10^3/uL (4.0-10.5)
[2017-11-11] MEDS ORDERED: DIPHENHYDRAMINE HCL 50 MG/ML VIAL IV ONE (21:28)
[2017-11-11] MEDS ORDERED: METOCLOPRAMIDE HCL INJ/PF 10 MG/2 ML SDV IV ONE ×2 (21:28→22:00)
[2017-11-11 21:32] LABS: ALANINE AMINOTRANSFERASE 26 U/L (9-52); ALKALINE PHOSPHATASE 72 U/L (38-126); ANION GAP 10 (5-19); ASPARTATE AMINO TRANSFERASE 19 U/L (14-36); BILIRUBIN,DIRECT 0.1 mg/dL (0.0-0.4); BILIRUBIN,TOTAL 0.1 mg/dL (0.2-1.3); BLOOD UREA NITROGEN 8 mg/dL (7-20); CALCIUM 9.6 mg/dL (8.4-10.2); CARBON DIOXIDE 27 mmol/L (22-30); CHLORIDE 106 mmol/L (98-107); GLUCOSE 108 mg/dL (75-110); LIPASE 111.9 U/L (23-300); POTASSIUM 3.9 mmol/L (3.6-5.0); SODIUM 143.4 mmol/L (137-145); TOTAL PROTEIN 7.2 g/dL (6.3-8.2)
[2017-11-11 21:45] LABS: PLATELET COUNT 176 10^3/uL (150-450)
[2017-11-11 21:48] LABS: APPEARANCE,URINE CLOUDY; BILIRUBIN,URINE NEGATIVE (NEGATIVE); COLOR,URINE YELLOW; GLUCOSE, URINE NEGATIVE (NEGATIVE); KETONES,URINE NEGATIVE (NEGATIVE); LEUKOCYTE ESTERASE,URINE NEGATIVE (NEGATIVE); NITRITE,URINE NEGATIVE (NEGATIVE); PROTEIN,URINE NEGATIVE (NEGATIVE); URINE SPECIFIC GRAVITY 1.027
[2017-11-11] MEDS ORDERED: ONDANSETRON ODT 4 MG TAB (6 TAB/ER DISP) PO PRN (23:06)
[2017-11-11 23:20] VITALS: BP 131/70
== END 2017-11-11 23:20 | disposition home or self-care (01) ==
LOC: ER 20:19
DX: R10.10 Upper abdominal pain, unspecified (principal); R10.811 Right upper quadrant abdominal tenderness; R11.2 Nausea with vomiting, unspecified; R51 Headache; R68.83 Chills (without fever); Z88.1 Allergy status to other antibiotic agents; Z88.0 Allergy status to penicillin; R63.5 Abnormal weight gain
CPT/HCPCS: 99284; 96361; 96374; 36415; 83690; 84443; 85025; 81025; 80053; 81001; J2765; J7040

== ENCOUNTER 2017-12-17 20:36 | Emergency (ER) | payer OTHER ==
[2017-12-17 20:56] VITALS: BP 124/69
--- NOTE | 2017-12-17 22:39 | ER Document Report ---
HPI - HPI Pain Level: 3 Notes: Patient is a 32-year-old female who presents to the ED complaining of nasal congestion/discharge, dry nonproductive cough, postnasal drip 3-4 days. Patient states that she is still eating and drinking without difficulties. She is still urinating normally having normal bowel movements. Patient has been using some drwy-vga-axnfsur meds for symptoms. She denies any significant past medical history including cardiopulmonary history and immunocompromised conditions. Patient denies any smoking or IV drug use. Patient requesting work note. Denies any headache, neck pain, sore throat, chest pain, palpitations, syncope, shortness of breath, wheeze, dyspnea, abdominal pain, nausea/vomiting/diarrhea, urinary retention, dysuria, hematuria, or rash. - ROS Systems Reviewed and Negative: Yes All other systems reviewed and negative - CONSTITUTIONAL Constitutional: DENIES: Fever, Chills - EENT EENT: DENIES: Sore Throat, Ear Pain, Eye problems - NEURO Neurology: REPORTS: Weakness. DENIES: Headache, Vision blurred - CARDIOVASCULAR Cardiovascular: REPORTS: Chest pain - center when coughing - RESPIRATORY Respiratory: REPORTS: Coughing. DENIES: Trouble Breathing - GASTROINTESTINAL Gastrointestinal: DENIES: Abdominal Pain, Black / Bloody Stools - REPRODUCTIVE Reproductive: DENIES: : - MUSCULOSKELETAL Musculoskeletal: DENIES: Extremity pain Past Medical History - Social History Smoking Status: Never Smoker Family History: Reviewed & Not Pertinent Patient has suicidal ideation: No Patient has homicidal ideation: No Neurological Medical History: Denies: Hx Migraine Renal/ Medical History: Denies: Hx Peritoneal Dialysis - Immunizations Hx Diphtheria, Pertussis, Tetanus Vaccination: Yes Vertical Provider Document - CONSTITUTIONAL Agree With Documented VS: Yes Notes: PHYSICAL EXAMINATION: GENERAL: Well-appearing, well-nourished and in no acute distress. A&Ox4. Answers questions appropriately. Moves comfortably w/o notable distress HEAD: Atraumatic, normocephalic. EYES: Pupils equal round and reactive to light, extraocular movements intact, sclera anicteric, conjunctiva are normal. ENT: EAC clear b/l. TM's intact b/l without erythema, fluid, or perforation. Nares patent and with clear discharge. oropharynx no erythema without exudates. No tonsilar hypertrophy without erythema or exudate. No palatine shift. Uvula midline. No tongue protrusion. No drooling, hoarseness, or airway compromise. Moist mucous membranes. No sinus tenderness. NECK: Normal range of motion, supple without lymphadenopathy. No rigidity/ meningismus. LUNGS: Breath sounds clear to auscultation bilaterally and equal. No wheezes rales or rhonchi. No retractions HEART: Regular rate and rhythm without murmurs, rubs, gallops. ABDOMEN: Soft, nontender, nondistended abdomen. No guarding, no rebound. No masses appreciated. Normal bowel sounds present. No CVA tenderness bilaterally. No hepatosplenomegaly. NEUROLOGICAL: Normal speech, normal gait. Normal sensory, motor exams PSYCH: Normal mood, normal affect. SKIN: Warm, Dry, normal turgor, no rashes or lesions noted. - INFECTION CONTROL TRAVEL OUTSIDE OF THE [place] IN LAST 30 DAYS: No Course - Re-evaluation Re-evalutation: 12/17/17 22:41 Patient is an afebrile, well-hydrated, 32-year-old female who presents to the ED with acute URI, suspect viral. Vitals are acceptable. PE is otherwise unremarkable. No labs or imaging warranted at this time based on H&P. Patient has no significant cardiopulmonary or immunocompromised medical conditions. Patient's lungs are clear to auscultation bilaterally without tachycardia, hypoxia, or tachypnea. Patient is tolerating p.o. without any difficulties. Low suspicion for any meningitis, sepsis, peritonsillar/pharyngeal abscess, respiratory compromise, severe dehydration, or other emergent systemic condition at this time. Patient is aware this condition can change from initial presentation and she needs to monitor symptoms closely. Conservative measures otherwise for symptoms. Recheck with your PCM in 3-5 days. Return to the ED with any worsening/concerning symptoms otherwise as reviewed in discharge. Patient is in agreement. - Vital Signs Vital signs: Temp Pulse Resp BP Pulse Ox 98.6 F 89 20 124/69 100 12/17/17 20:55 12/17/17 20:55 12/17/17 20:55 12/17/17 20:55 12/17/17 20:55 Discharge - Discharge Clinical Impression: Acute URI Condition: Stable Disposition: HOME, SELF-CARE Instructions: Upper Respiratory Illness ([facility]) Additional Instructions: Maintain adequate fluid intake Take meds as directed tylenol/ibuprofen as needed over the counter cold medication as needed for symptoms Humidified air may help Wash your hands regularly Wear a mask when coughing F/u: with your PCM in 3-5 days for a recheck Return to the ED with any fever, worsening pain, chest pain, palpitations, syncope, worsening LANDRUM, neck pain/stiffness, shortness of breath, wheezing, drooling, trouble swallowing/breathing, abdominal pain, n/v/d, rash, or worsening/concerning symptoms otherwise. Forms: Return to Work Referrals: [facility] [Provider Group] - Follow up as needed [facility] [Provider Group] - Follow up as needed
== END 2017-12-17 22:44 | disposition home or self-care (01) ==
LOC: ER 20:36
DX: J06.9 Acute upper respiratory infection, unspecified (principal); R07.81 Pleurodynia; R53.83 Other fatigue
CPT/HCPCS: 99283

== ENCOUNTER → 2017-12-22 | Outpatient (CLI) | payer OTHER ==
--- NOTE | 2017-12-22 14:37 | RADIOLOGY REPORT (SQ) ---
EXAM DESCRIPTION: PARANASAL SINUSES COMPLETED DATE/TIME: 12/22/2017 12:10 pm REASON FOR STUDY: CHRONIC SINUS COMPLAINTS COMPARISON: None. NUMBER OF VIEWS: Three views. TECHNIQUE: Images of the paranasal sinuses acquired. LIMITATIONS: None. FINDINGS: ORBITS: No fracture. No foreign body. SINUSES: Haziness left frontal sinus that may relate to chronic sinusitis. Remaining the sinuses are clear. No air-fluid levels. FACIAL BONES: No fracture. OTHER: No other significant finding. IMPRESSION: Possible left frontal sinusitis. TECHNICAL DOCUMENTATION: JOB ID: [id number] [employer]- All Rights Reserved Reading location - IP/workstation name: [email or web address]
== END ==
LOC: OD 11:45
PROVIDERS: ATTEND Allergy & Immunology
DX: R09.89 Other specified symptoms and signs involving the circulatory and respiratory systems (principal)
CPT/HCPCS: 70220

== ENCOUNTER 2018-01-16 08:46 | Emergency (ER) | payer OTHER ==
[2018-01-16 08:52] VITALS: BP 127/72
--- NOTE | 2018-01-16 10:00 | ER Document Report ---
HPI - HPI Patient complains to provider of: sinus pain, nose bleed, arm rash Onset: Other - 1-2 months Onset/Duration: Persistent Quality of pain: Pressure, Other - sore Pain Level: 2 Context: Patient presents emergency department with complaints of left-sided sinus pain nosebleed 2 and rash under her left arm, left axilla.. Denies fever vomiting diarrhea. Reports 2 weeks ago she was seen by her offset press assistant at [facility] [place] and prescribed cefuroxime along with nasal rinses and claritan. She reports her nose or sore yesterday so she put her finger up her nose and she has had 2 nosebleeds since then. She also complains of a headache. She reports she has had a rash under her left axilla for a couple months and was prescribed antifungal but is still not getting better. 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 IN LAST 30 DAYS: No - HEENT HEENT: Atraumatic, Normal ENT Exam, Normocephalic. negative: Conjuctival Injection, Pharyngeal Exudate, Pharyngeal Erythema, Tympanic Membrane Red, Tympanic Membrane Bulging Notes: no nasal bleeding noted, c/o left frontal sinus pain with palpation - NECK Neck: Normal Inspection, Supple. negative: Lymphadenopathy-Left, Lymphadenopathy-Right - RESPIRATORY Respiratory: Breath Sounds Normal, No Respiratory Distress - CARDIOVASCULAR Cardiovascular: Regular Rate - GI/ABDOMEN Gastrointestinal: Abdomen Soft - MUSCULOSKELETAL/EXTREMETIES Musculoskeletal/Extremeties: JESUS CHI - NEURO Level of Consciousness: Awake, Alert, Appropriate Motor/Sensory: No Motor Deficit - DERM Integumentary: Warm, Dry, Rash Adult Front & Back Diagram: 1 - fungal rash noted under left arm, no papules, no vesicles Course - Re-evaluation Re-evalutation: 01/16/18 10:08 She was instructed on the importance of continuing medication and treatment plan that her provider has already prescribed for her. Patient is nontoxic looking was instructed to follow-up with her offset press assistant on Thursday. Instructed take Tylenol for her headache. She verbalized understanding all instructions. instructed to not pick her nose. - Vital Signs Vital signs: Temp Pulse Resp BP Pulse Ox 98.7 F 83 18 127/72 H 100 01/16/18 08:51 01/16/18 08:51 01/16/18 08:51 01/16/18 08:51 01/16/18 08:51 Discharge - Discharge Clinical Impression: Sinus pain, axilla fungal rash Condition: Stable Disposition: HOME, SELF-CARE Additional Instructions: *You have been evaluated for sinus pain, nose bleed, fungal rash *Take your medication as prescribed *Take Tylenol as indicated *Follow up with your offset press assistant Thursday *Return to ED for worsening condition, changes, needs Monitor your blood pressure. Your blood pressure was elevated today. This may be because you were anxious, in pain or because you need medication. It is important to follow up with your primary care provider for full evaluation. Forms: Elevated Blood Pressure, Return to Work
== END 2018-01-16 10:05 | disposition home or self-care (01) ==
LOC: ER 08:46
DX: J34.89 Other specified disorders of nose and nasal sinuses (principal); R21 Rash and other nonspecific skin eruption; B48.8 Other specified mycoses; R51 Headache; F17.210 Nicotine dependence, cigarettes, uncomplicated
CPT/HCPCS: 99283

== ENCOUNTER 2018-02-09 19:01 | Emergency (ER) | payer OTHER | END 2018-02-09 19:05 | disposition left against medical advice (07) | LOC: ER 19:01 | DX: Z53.21 Procedure and treatment not carried out due to patient leaving prior to being seen by health care provider (principal); R51 Headache ==

== ENCOUNTER 2018-03-16 10:57 | Emergency (ER) | payer OTHER ==
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
[2018-03-16] MEDS ORDERED: ACETAMINOPHEN 325 MG TABLET PO ONE (12:17)
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
[2018-03-16 13:21] VITALS: BP 118/72
== END 2018-03-16 13:53 | disposition home or self-care (01) ==
LOC: ER 10:57
DX: S16.1XXA Strain of muscle, fascia and tendon at neck level, initial encounter (principal); R51 Headache; M54.2 Cervicalgia; V49.40XA Driver injured in collision with unspecified motor vehicles in traffic accident, initial encounter
CPT/HCPCS: 70450; 72125; 99284

== ENCOUNTER 2018-05-08 04:14 | Emergency (ER) | payer SELFPAY ==
[2018-05-08] MEDS ORDERED: ONDANSETRON HCL INJ/PF 4 MG/2 ML SDV IV ONE (04:34)
[2018-05-08] MEDS ORDERED: NORMAL SALINE 1000 ML 1,000 ML IV ONE (04:34)
--- NOTE | 2018-05-08 04:51 | ER Document Report ---
ED GI/ - General Chief Complaint: Nausea/Vomiting Stated Complaint: VOMITING Time Seen by Provider: 05/08/18 04:34 Notes: Patient is a 33-year-old female presenting to the emergency department complaining of vomiting for the last 3 days. Patient states she has had 4 episodes of emesis each day for the last 3 days is denying any blood. Patient is denying diarrhea. Patient is saying she has a subjective fever. And left lower abdominal pain. Patient states vomiting initially started and then her left lower abdominal pain started. Patient is denying dysuria, vaginal discharge, chest pain, shortness of breath. Past medical history: None Medications: Zyrtec Allergies: Clindamycin, Keflex, penicillin, naproxen Surgical history: None Patient does admit to cigarette smoking, denies illicit drug use, denies EtOH use Patient's last menstrual period was 03/10/2018 TRAVEL OUTSIDE OF THE [place] IN LAST 30 DAYS: No - Related Data Allergies/Adverse Reactions: clindamycin [Clindamycin] Allergy (Intermediate, Verified 05/08/18 04:36) burning, SOB cephalexin [Cephalexin] Allergy (Verified 05/08/18 04:36) Penicillins Allergy (Verified 05/08/18 04:36) naproxen [From Naprosyn] Adverse Reaction (Verified 05/08/18 04:36) VOMITING Past Medical History - General Information source: Patient - Social History Smoking Status: Current Every Day Smoker Lives with: Family Family History: Reviewed & Not Pertinent Patient has suicidal ideation: No Patient has homicidal ideation: No Neurological Medical History: Denies: Hx Migraine Renal/ Medical History: Denies: Hx Peritoneal Dialysis - Immunizations Hx Diphtheria, Pertussis, Tetanus Vaccination: Yes Review of Systems - Review of Systems Constitutional: See HPI EENT: No symptoms reported Cardiovascular: See HPI Respiratory: No symptoms reported Gastrointestinal: See HPI Genitourinary: See HPI Female Genitourinary: See HPI Musculoskeletal: No symptoms reported Skin: No symptoms reported Hematologic/Lymphatic: No symptoms reported Neurological/Psychological: No symptoms reported Physical Exam - Vital signs Vitals: Temp Pulse Resp BP Pulse Ox 98.2 F 95 14 129/69 H 98 05/08/18 04:15 05/08/18 04:15 05/08/18 04:15 05/08/18 04:15 05/08/18 04:15 - Notes Notes: GENERAL: Alert, interacts well. No acute distress. HEAD: Normocephalic, atraumatic. EYES: Pupils equal, round, and reactive to light. Extraocular movements intact. ENT: Oral mucosa moist, tongue midline. NECK: Full range of motion. Supple. Trachea midline. LUNGS: Clear to auscultation bilaterally, no wheezes, rales, or rhonchi. No respiratory distress. HEART: Regular rate and rhythm. No murmur ABDOMEN: Soft, non-tender. Non-distended. Bowel sounds present in all 4 quadrants. Khan sign negative, no McBurney's point tenderness. Pain upon palpation left upper quadrant. No pain palpation left lower quadrant or suprapubic area. EXTREMITIES: Moves all 4 extremities spontaneously. No edema, normal radial and dorsalis pedis pulses bilaterally. No cyanosis. BACK: no cervical, thoracic, lumbar midline tenderness. No saddle anesthesia, normal distal neurovascular exam. No CVA tenderness bilaterally NEUROLOGICAL: Alert and oriented x3. Normal speech. cranial nerves II through XII grossly intact PSYCH: Normal affect, normal mood. SKIN: Warm, dry, normal turgor. No rashes or lesions noted. Course - Re-evaluation Re-evalutation: 05/08/18 05:54 HCG came back negative. Upon reassessment patient denies abdominal pain. Patient states she does not feel as nauseated as she did upon arrival and feels better overall. 05/08/18 06:58 : HCG was 255. Patient continues to deny abdominal pain. Patient has not vomited since arriving to the emergency department. Discussed positive test in the ED and need to follow-up with [facility]. Close return precautions discussed. - Vital Signs Vital signs: Temp Pulse Resp BP Pulse Ox 98.2 F 95 14 129/69 H 98 05/08/18 04:15 05/08/18 04:15 05/08/18 04:15 05/08/18 04:15 05/08/18 04:15 - Laboratory Result Diagrams: 05/08/18 04:45 05/08/18 04:45 Laboratory results interpreted by me: 05/08/18 05/08/18 05/08/18 04:45 04:45 04:45 MCV 78 L MCH 25.2 L RDW 14.2 H Beta HCG, Quant 255.18 H Urine Ketones TRACE H Urine HCG, Qual POSITIVE H Discharge - Discharge Clinical Impression: Positive test Nausea & vomiting Qualifiers: Vomiting type: unspecified Vomiting Intractability: non-intractable Qualified Code(s): R11.2 - Nausea with vomiting, unspecified Condition: Stable Disposition: HOME, SELF-CARE Instructions: Vomiting ([facility]), Intravenous (IV) Fluids ([facility]) Additional Instructions: As we discussed your test in the emergency department was positive. Your hormone levels are still very low at this time. You should follow-up with your primary care or [facility] for continued care. Please return to the emergency room should you develop any abdominal pain or have any vaginal bleeding or discharge. Please return to the emergency room for any other concerning symptoms. Referrals: MITCHELL JACKSON MD [ACTIVE STAFF] - Follow up as needed
[2018-05-08 05:07] LABS: APPEARANCE,URINE CLOUDY; BILIRUBIN,URINE NEGATIVE (NEGATIVE); COLOR,URINE YELLOW; GLUCOSE, URINE NEGATIVE (NEGATIVE); KETONES,URINE TRACE mg/dL (NEGATIVE); LEUKOCYTE ESTERASE,URINE NEGATIVE (NEGATIVE); NITRITE,URINE NEGATIVE (NEGATIVE); PROTEIN,URINE NEGATIVE (NEGATIVE); URINE SPECIFIC GRAVITY 1.016; UROBILINOGEN,URINE NEGATIVE mg/dL (<2.0)
[2018-05-08 05:27] LABS: TOTAL CELLS COUNTED % (AUTO) 100 %
[2018-05-08 05:31] LABS: ABSOLUTE EOSINOPHILS # (AUTO) 0.1 10^3/uL (0.0-0.6); ABSOLUTE LYMPHOCYTES (AUTO) 2.4 10^3/uL (0.5-4.7); ABSOLUTE MONOCYTES (AUTO) 0.6 10^3/uL (0.1-1.4); ABSOLUTE NEUT (AUTO) 5.1 10^3/uL (1.7-8.2); BASOPHILS % (AUTO) 0.5 % (0-2); EOSINOPHILS % (AUTO) 1.7 % (0-6); HEMATOCRIT 37.2 % (36.0-47.0); LYMPHOCYTES % (AUTO) 28.8 % (13-45); MEAN CORPUSCULAR HEMOGLOBIN 25.2 pg (27.0-33.4); MEAN CORPUSCULAR HGB CONC 32.3 g/dL (32.0-36.0); MEAN CORPUSCULAR VOLUME 78 fl (80-97); PLATELET COUNT 159 10^3/uL (150-450); RED BLOOD COUNT 4.77 10^6/uL (3.72-5.28); RED CELL DISTRIBUTION WIDTH 14.2 % (11.5-14.0); WHITE BLOOD COUNT 8.2 10^3/uL (4.0-10.5)
[2018-05-08 05:35] LABS: ALANINE AMINOTRANSFERASE 12 U/L (9-52); ALBUMIN 3.5 g/dL (3.5-5.0); ALKALINE PHOSPHATASE 61 U/L (38-126); ANION GAP 10 (5-19); ASPARTATE AMINO TRANSFERASE 21 U/L (14-36); BILIRUBIN,DIRECT 0.1 mg/dL (0.0-0.4); BILIRUBIN,TOTAL 0.5 mg/dL (0.2-1.3); BLOOD UREA NITROGEN 8 mg/dL (7-20); CALCIUM 9.6 mg/dL (8.4-10.2); CARBON DIOXIDE 23 mmol/L (22-30); CHLORIDE 107 mmol/L (98-107); GLUCOSE 107 mg/dL (75-110); LIPASE 96.3 U/L (23-300); POTASSIUM 3.9 mmol/L (3.6-5.0); SODIUM 139.6 mmol/L (137-145); TOTAL PROTEIN 6.4 g/dL (6.3-8.2)
[2018-05-08 07:08] VITALS: BP 122/68
== END 2018-05-08 07:08 | disposition home or self-care (01) ==
LOC: ER 04:14
DX: R11.2 Nausea with vomiting, unspecified (principal); Z32.01 Encounter for pregnancy test, result positive; R10.32 Left lower quadrant pain; R10.812 Left upper quadrant abdominal tenderness; F17.210 Nicotine dependence, cigarettes, uncomplicated; Z79.899 Other long term (current) drug therapy; Z88.1 Allergy status to other antibiotic agents; Z88.0 Allergy status to penicillin; Z88.8 Allergy status to other drugs, medicaments and biological substances
CPT/HCPCS: 99283; 96361; 96374; 36415; 84702; 83690; 85025; 81025; 80053; 81001; J2405; J7030

== ENCOUNTER 2018-05-17 20:56 | Emergency (ER) | payer MEDICAID ==
[2018-05-17] MEDS ORDERED: ONDANSETRON HCL INJ/PF 4 MG/2 ML SDV IV ONE (22:56)
--- NOTE | 2018-05-17 22:56 | ER Document Report ---
ED General - General Chief Complaint: Vag Bleeding, +preg <12wks Stated Complaint: VAGINAL BLEEDING Time Seen by Provider: 05/17/18 22:27 Mode of Arrival: Ambulatory Information source: Patient, [facility] Records Notes: 33-year-old female at approximately 9 weeks and 5 days per last menstrual period presents with complaint of vaginal bleeding and cramping that started 3 hours prior to arrival. Patient states that she went to the bathroom earlier today and noticed some bright red blood when she wiped. She states shortly afterwards she started to experience significant lower abdominal cramping. She states that she has had no additional bleeding but the cramping has gotten worse. She has had nausea without vomiting. She denies any fever, chills, dysuria, hematuria. She has been seen by the health department but has not had a ultrasound confirming an IUP as of yet. TRAVEL OUTSIDE OF THE [place] IN LAST 30 DAYS: No - HPI Onset: Just prior to arrival Onset/Duration: Sudden Quality of pain: Cramping Severity: Mild Associated symptoms: Nonproductive cough, Nausea. denies: Chest pain, Fever, Vomiting, Shortness of breath, Sweating Exacerbated by: Denies Relieved by: Denies Similar symptoms previously: No Recently seen / treated by doctor: Yes - Related Data Allergies/Adverse Reactions: clindamycin [Clindamycin] Allergy (Intermediate, Verified 05/08/18 04:36) burning, SOB cephalexin [Cephalexin] Allergy (Verified 05/08/18 04:36) Penicillins Allergy (Verified 05/08/18 04:36) naproxen [From Naprosyn] Adverse Reaction (Verified 05/08/18 04:36) VOMITING Past Medical History - General Information source: Patient, [facility] Records - Social History Smoking Status: Never Smoker Frequency of alcohol use: None Drug Abuse: None Lives with: Spouse/Significant other Family History: Reviewed & Not Pertinent Patient has suicidal ideation: No Patient has homicidal ideation: No - Medical History Medical History: Negative Neurological Medical History: Denies: Hx Migraine Renal/ Medical History: Denies: Hx Peritoneal Dialysis - Immunizations Hx Diphtheria, Pertussis, Tetanus Vaccination: Yes Review of Systems - Review of Systems Notes: REVIEW OF SYSTEMS: CONSTITUTIONAL : Denies fever, chills, or sweats. Denies recent illness. Denies weight loss, recent hospitalizations. EENT: Denies visual changes, eye pain. Denies sore throat, oral lesions, difficulty swallowing. CARDIOVASCULAR: Denies chest pain. Denies palpitations. Denies lower extremity edema. RESPIRATORY: Denies cough. Denies shortness of breath, wheezing. GASTROINTESTINAL: Denies abdominal distention. Denies vomiting, or diarrhea. Denies blood in vomitus, stools, or per rectum. Denies black, tarry stools. Denies constipation. GENITOURINARY: Denies difficulty urinating, painful urination, frequency, blood in urine, or vaginal discharge. MUSCULOSKELETAL: Denies back or neck pain or stiffness. Denies joint pain or swelling. SKIN: Denies rash, lesions or sores. HEMATOLOGIC : Denies easy bruising or bleeding. LYMPHATIC: Denies swollen glands. NEUROLOGICAL: Denies confusion or altered mental status. Denies loss of consciousness. Denies dizziness or lightheadedness. Denies headache. Denies weakness or paralysis. Denies problems difficulty with ambulation, slurred speech. Denies sensory loss, numbness, or tingling. Denies seizures. PSYCHIATRIC: Denies anxiety or stress. Denies depression, suicidal ideation, or homicidal ideation. Denies visual or auditory hallucinations. Physical Exam - Vital signs Vitals: Temp Pulse Resp BP Pulse Ox 97.4 F 111 H 16 131/79 H 100 05/17/18 20:59 05/17/18 20:59 05/17/18 20:59 05/17/18 20:59 05/17/18 20:59 - Notes Notes: PHYSICAL EXAMINATION: GENERAL: Well-appearing, well-nourished and in no acute distress. HEAD: Atraumatic, normocephalic. EYES: Pupils equal round and reactive to light, extraocular movements intact, conjunctiva are normal. ENT: Nares patent, oropharynx clear without exudates. Moist mucous membranes. NECK: Normal range of motion, supple without lymphadenopathy LUNGS: Breath sounds clear to auscultation bilaterally and equal. No wheezes rales or rhonchi. HEART: Regular rate and rhythm without murmurs ABDOMEN: Soft, nontender, nondistended abdomen. No guarding, no rebound. No masses appreciated. Female : Scant bleeding, no discharge, no cervical motion tenderness, no external vaginal lesions, no vaginal lacerations. Musculoskeletal: Normal range of motion, no pitting or edema. No cyanosis. NEUROLOGICAL: Cranial nerves grossly intact. Normal speech, normal gait. Normal sensory, motor exams PSYCH: Normal mood, normal affect. SKIN: Warm, Dry, normal turgor, no rashes or lesions noted. Course - Re-evaluation Re-evalutation: 05/18/18 00:20 Laboratory 05/17/18 05/17/18 05/17/18 23:22 23:22 23:22 WBC 7.1 RBC 5.00 Hgb 12.5 Hct 38.8 MCV 78 L MCH 25.0 L MCHC 32.2 RDW 14.2 H Plt Count 192 Seg Neutrophils % 65.4 Lymphocytes % 23.5 Monocytes % 9.3 Eosinophils % 1.5 Basophils % 0.3 Absolute Neutrophils 4.6 Absolute Lymphocytes 1.7 Absolute Monocytes 0.7 Absolute Eosinophils 0.1 Absolute Basophils 0.0 Beta HCG, Quant 5363.00 H Total Beta HCG POSITIVE Blood Type A POSITIVE Rhogam Indicated RHOGAM NOT INDICATED Obstetrics Ultrasound 05/17/18 23:00 IMPRESSION: 1. A gestational sac is identified within the endometrium with an estimated gestational age of 5 weeks, 2 days by mean sac diameter. No pole is identified at this time. Differential considerations include early normal and anembryonic . Close continued clinical, laboratory, and sonographic follow-up recommended. 05/18/18 05:35 33-year-old female at approximately 9 weeks and 5 days per last menstrual period presents with complaint of vaginal bleeding and cramping that started 3 hours prior to arrival. Patient states that she went to the bathroom earlier today and noticed some bright red blood when she wiped. She states shortly afterwards she started to experience significant lower abdominal cramping. She states that she has had no additional bleeding but the cramping has gotten worse. She has had nausea without vomiting. She denies any fever, chills, dysuria, hematuria. She has been seen by the health department but has not had a ultrasound confirming an IUP as of yet. Vital signs reviewed upon arrival. Patient does not appear toxic or dehydrated. She is in no acute distress. CBC is without leukocytosis, anemia. Patient does have a hCG quant of over 5000 when seen approximately 1 week ago her quant at that time was only 200. Patient is Rh+ and does not require RhoGam. Transvaginal ultrasound was performed and did show a gestational sac dating approximately 5 weeks. No pole was identified. If the patient's dates are correct then this is likely an an embryonic . If patient's dates are off then this just could be a normal early intrauterine . I did discuss these findings with the patient. She was provided copies of her ultrasound report. She is due to be seen at the health department tomorrow for an ultrasound but I told her that it is unlikely that that would show anything different from today's ultrasound. She was encouraged to keep the appointment and showed them today's workup. She was also advised that if they do not provide repeat blood testing in 48 hours that she should return to the hospital for a repeat hCG. She was also encouraged to ask if a repeat ultrasound could be done in 1 week instead of tomorrow to avoid returning to the emergency department. Patient was advised that if she experienced increased pain, bleeding that she should return to the emergency department immediately. She does express understanding of this. Patient was discharged home with Zofran on as needed for cramping. - Vital Signs Vital signs: Temp Pulse Resp BP Pulse Ox 98.5 F 82 18 120/59 L 99 05/18/18 02:20 05/18/18 02:20 05/18/18 02:20 05/18/18 02:20 05/18/18 02:20 - Laboratory Result Diagrams: 05/17/18 23:22 Laboratory results interpreted by me: 05/17/18 05/17/18 05/18/18 23:22 23:22 01:07 MCV 78 L MCH 25.0 L RDW 14.2 H Beta HCG, Quant 5363.00 H Urine Ketones 20 H Urine Blood MODERATE H Urine Urobilinogen 2.0 H - Diagnostic Test Radiology reviewed: Image reviewed, Reports reviewed Discharge - Discharge Clinical Impression: Vaginal bleeding during , Elevated blood pressure reading Pelvic pain affecting Qualifiers: Trimester: first trimester Qualified Code(s): O26.891 - Other specified related conditions, first trimester Condition: Good Disposition: HOME, SELF-CARE Instructions: Bleeding During Early ([facility]), Threatened Miscarriage ( [facility]), Vaginosis, Bacterial ([facility]) Additional Instructions: You must return to the hospital in 48 hours for repeat lab work. return in one week for repeat ultrasound. Your ultrasound today does not show a living intrauterine . Your ultrasound shows a gestational sac dated at approximately 5 weeks. Please follow closely with your primary care [employer]. Please return if you develop severe abdominal pain, bleeding that goes through more than 2 pads for more than 2 hours, pass out, or have any other symptoms that are concerning to you. Please follow-up closely with your OBGYN regarding todays visit. You are being treated for bacterial vaginosis, an overgrowth of normal bacteria in the vagina. You are being sent home on an antibiotic called metronidazole. Take exactly as directed. Never drink alcohol while taking this antibiotic. Please return if you develop abdominal pain, fever greater than 101F, some vomiting, or any other symptoms that are concerning to you. Prescriptions: Metronidazole [Metrogel 0.75% Vaginal Gel] 5 applic VG QHS #1 tube Ondansetron [Zofran Odt 4 mg Tablet] 1 tab PO Q4H PRN #15 tab.rapdis PRN Reason: For Nausea/Vomiting Forms: Elevated Blood Pressure, Follow-Up Laboratory Testing Referrals: JUAN JACKSON MD [ACTIVE STAFF] - Follow up in 3-5 days
[2018-05-17 23:40] LABS: ABSOLUTE EOSINOPHILS # (AUTO) 0.1 10^3/uL (0.0-0.6); ABSOLUTE LYMPHOCYTES (AUTO) 1.7 10^3/uL (0.5-4.7); ABSOLUTE MONOCYTES (AUTO) 0.7 10^3/uL (0.1-1.4); ABSOLUTE NEUT (AUTO) 4.6 10^3/uL (1.7-8.2); BASOPHILS % (AUTO) 0.3 % (0-2); EOSINOPHILS % (AUTO) 1.5 % (0-6); HEMATOCRIT 38.8 % (36.0-47.0); HEMOGLOBIN 12.5 g/dL (12.0-15.5); LYMPHOCYTES % (AUTO) 23.5 % (13-45); MEAN CORPUSCULAR HGB CONC 32.2 g/dL (32.0-36.0); MEAN CORPUSCULAR VOLUME 78 fl (80-97); MONOCYTES % (AUTO) 9.3 % (3-13); RED CELL DISTRIBUTION WIDTH 14.2 % (11.5-14.0); SEGMENTED NEUTROPHILS % (AUTO) 65.4 % (42-78); TOTAL CELLS COUNTED % (AUTO) 100 %; WHITE BLOOD COUNT 7.1 10^3/uL (4.0-10.5)
[2018-05-18 00:02] LABS: PLATELET COUNT 192 10^3/uL (150-450)
--- NOTE | 2018-05-18 00:25 | RADIOLOGY REPORT (SQ) ---
EXAM DESCRIPTION: US TRANSVAGINAL COMPLETED DATE/TME: 05/17/2018 23:00 CLINICAL HISTORY: 33 years Female, Bleeding in first trimester LMP: 03/10/2018 COMPARISON: None. TECHNIQUE: Complete first trimester ultrasound obtained with transvaginal imaging FINDINGS: Uterus: The uterus measures 9.5 x 3.8 x 3.5. Cervical length of 3.6 cm. No myometrial abnormalities. Gestational sac: A gestational sac is identified within the endometrium with a mean sac diameter of 0.61 cm compatible with an estimated gestational age of 5 weeks, 2 days. pole: Not identified heart motion: Not identified Yolk sac: Visualized measuring 0.2 cm Right ovary: 2.7 x 1.7 x 1.7 cm Left ovary: 2.7 x 1.4 x 1.6 cm Adnexa: No large adnexal masses. Free fluid: No free pelvic fluid. Duplex imaging: Limited color and spectral Doppler imaging demonstrates flow within the ovaries bilaterally. IMPRESSION: 1. A gestational sac is identified within the endometrium with an estimated gestational age of 5 weeks, 2 days by mean sac diameter. No pole is identified at this time. Differential considerations include early normal and anembryonic . Close continued clinical, laboratory, and sonographic follow-up recommended.
[2018-05-18 00:37] LABS: BACTERIA (WET MOUNT) 4+ BACTERIA SEEN; EPITHELIALS (WET MOUNT) 3+ EPITHELIALS SEEN; RBCS (WET MOUNT) 2+ RBCS SEEN; T.VAGINALIS (WET MOUNT) NO TRICHOMONAS SEEN; WBCS (WET MOUNT) 1+ WBCS SEEN; YEAST (WET MOUNT) NO YEAST SEEN
[2018-05-18 01:32] LABS: APPEARANCE,URINE CLOUDY; BILIRUBIN,URINE NEGATIVE (NEGATIVE); COLOR,URINE YELLOW; GLUCOSE, URINE NEGATIVE (NEGATIVE); KETONES,URINE 20 mg/dL (NEGATIVE); LEUKOCYTE ESTERASE,URINE NEGATIVE (NEGATIVE); NITRITE,URINE NEGATIVE (NEGATIVE); PROTEIN,URINE NEGATIVE (NEGATIVE); URINE SPECIFIC GRAVITY 1.014
[2018-05-18 02:21] VITALS: BP 120/59
[2018-05-18 03:36] LABS: CHLAM PCR NOT DETECTED (NOT DETECT); GON PCR NOT DETECTED (NOT DETECT)
== END 2018-05-18 02:21 | disposition home or self-care (01) ==
LOC: ER 20:56
DX: O46.91 Antepartum hemorrhage, unspecified, first trimester (principal); O26.891 Other specified pregnancy related conditions, first trimester; R03.0 Elevated blood-pressure reading, without diagnosis of hypertension; R05 Cough; R11.0 Nausea; Z3A.09 9 weeks gestation of pregnancy
CPT/HCPCS: 99284; 96374; 86900; 86901; 36415; 87210; 84702; 85025; 81001; 87491; 87591; 76817; J2405

== ENCOUNTER → 2018-05-19 | Outpatient (CLI) | payer MEDICAID | LOC: LAB 09:18 | PROVIDERS: ATTEND Student in an Organized Health Care Education/Training Program | DX: O20.0 Threatened abortion (principal); Z3A.00 Weeks of gestation of pregnancy not specified | CPT/HCPCS: 36415; 84702 ==

== ENCOUNTER 2018-07-08 09:07 | Emergency (ER) | payer MEDICAID ==
[2018-07-08] MEDS ORDERED: DEXTROSE 5%-1/2 NORMAL SALINE 1,000 ML IV ONE (09:39)
[2018-07-08] MEDS ORDERED: ONDANSETRON HCL INJ/PF 4 MG/2 ML SDV IV ONE (09:39)
--- NOTE | 2018-07-08 09:40 | ER Document Report ---
ED Medical Screen (RME) - General Chief Complaint: Vomiting Stated Complaint: VOMITING Time Seen by Provider: 07/08/18 09:33 TRAVEL OUTSIDE OF THE [place] IN LAST 30 DAYS: No - Related Data Allergies/Adverse Reactions: clindamycin [Clindamycin] Allergy (Intermediate, Verified 07/08/18 09:08) burning, SOB cephalexin [Cephalexin] Allergy (Verified 07/08/18 09:08) Penicillins Allergy (Verified 07/08/18 09:08) naproxen [From Naprosyn] Adverse Reaction (Verified 07/08/18 09:08) VOMITING Past Medical History - Social History Frequency of alcohol use: None Drug Abuse: None Family history: Reviewed & Not Pertinent Neurological Medical History: Denies: Hx Migraine Renal/ Medical History: Denies: Hx Peritoneal Dialysis - Immunizations Hx Diphtheria, Pertussis, Tetanus Vaccination: Yes History of Influenza Vaccine for 04/2017 - 09/2017 Season: No Physical Exam - Vital signs Vitals: Temp Pulse Resp BP Pulse Ox 98.5 F 106 H 16 127/77 H 100 07/08/18 09:12 07/08/18 09:12 07/08/18 09:12 07/08/18 09:12 07/08/18 09:12 Course - Re-evaluation Re-evalutation: 07/08/18 09:40 33-year-old female 12 weeks with vomiting which started today. Has responded well previously to Zofran. Has been seen by her primary physician, takes likely just as well as Reglan. Is trying to drink water in the room was not able to tolerate any of it. I have seen and performed a rapid medical screening examination on this patient, workup has been initiated however there will require further evaluation reassessment and disposition determination from a secondary provider. - Vital Signs Vital signs: Temp Pulse Resp BP Pulse Ox 98.5 F 106 H 16 127/77 H 100 07/08/18 09:12 07/08/18 09:12 07/08/18 09:12 07/08/18 09:12 07/08/18 09:12
--- NOTE | 2018-07-08 10:20 | ER Document Report ---
ED General - General Chief Complaint: Vomiting Stated Complaint: VOMITING Time Seen by Provider: 07/08/18 09:33 Mode of Arrival: Ambulatory Information source: Patient TRAVEL OUTSIDE OF THE [place] IN LAST 30 DAYS: No - HPI Notes: 33-year-old female 1 para 0 who is 12 weeks presents to the ED with complaints of nausea vomiting for the last 3 days. Patient has been treated outpatient by [facility] for hyperemesis gravidarum with Reglan. Patient only takes Reglan at night. Patient was advised that was urine to come in today for IV fluids. denies any vaginal bleeding, pelvic pain, abdominal pain. Denies fevers, chills, chest pain,palpitations, shortness of breath, dyspnea, nausea, diarrhea, abdominal pain, hematuria,blurred vision, double vision, loss of vision, speech changes, LH, dizziness, syncope, headaches, w neck pain, weakness, bowel or bladder dysfunction, saddle anesthesia, numbness or tingling in bilateral upper or lower extremities equally, muscle paralysis, weakness in bilateral upper or lower extremities equally or rash - Related Data Allergies/Adverse Reactions: clindamycin [Clindamycin] Allergy (Intermediate, Verified 07/08/18 09:08) burning, SOB cephalexin [Cephalexin] Allergy (Verified 07/08/18 09:08) Penicillins Allergy (Verified 07/08/18 09:08) naproxen [From Naprosyn] Adverse Reaction (Verified 07/08/18 09:08) VOMITING Past Medical History - General Information source: Patient - Social History Smoking Status: Unknown if Ever Smoked Frequency of alcohol use: None Drug Abuse: None Family History: Reviewed & Not Pertinent Patient has suicidal ideation: No Patient has homicidal ideation: No Neurological Medical History: Denies: Hx Migraine Renal/ Medical History: Denies: Hx Peritoneal Dialysis - Immunizations Hx Diphtheria, Pertussis, Tetanus Vaccination: Yes Review of Systems - Review of Systems Constitutional: No symptoms reported EENT: No symptoms reported Cardiovascular: No symptoms reported Respiratory: No symptoms reported Gastrointestinal: See HPI Genitourinary: No symptoms reported Female Genitourinary: No symptoms reported Musculoskeletal: No symptoms reported Skin: No symptoms reported Hematologic/Lymphatic: No symptoms reported Neurological/Psychological: No symptoms reported Physical Exam - Vital signs Vitals: Temp Pulse Resp BP Pulse Ox 98.5 F 106 H 16 127/77 H 100 07/08/18 09:12 07/08/18 09:12 07/08/18 09:12 07/08/18 09:12 07/08/18 09:12 - Notes Notes: PHYSICAL EXAMINATION: GENERAL: Well-appearing, well-nourished and in no acute distress. HEAD: Atraumatic, normocephalic. EYES: Pupils equal round and reactive to light, extraocular movements intact, conjunctiva are normal. ENT: Nares patent, oropharynx clear without exudates. Moist mucous membranes. NECK: Normal range of motion, supple without lymphadenopathy LUNGS: Breath sounds clear to auscultation bilaterally and equal. No wheezes rales or rhonchi. HEART: Regular rate and rhythm without murmurs ABDOMEN: Soft, nontender, nondistended abdomen. No guarding, no rebound. No masses appreciated.no cva tenderness Female : deferred Musculoskeletal: Normal range of motion, no pitting or edema. No cyanosis. NEUROLOGICAL: Cranial nerves grossly intact. Normal speech, normal gait. Normal sensory, motor exams PSYCH: Normal mood, normal affect. SKIN: Warm, Dry, normal turgor, no rashes or lesions noted. Course - Re-evaluation Re-evalutation: 07/08/18 18:43 afebrile vitals stable no distress female who is tolerated. First presents for evaluation of hypergravidarum emesis.. States negative for leukocytosis or anemia, CMP negative for hepatic or renal dysfunction, urinalysis does show ketones slight proteinuria as well as leukocytes. Patient states she had slight dysuria. Patient has had a UTI, will start on oral antibiotics. no diarrhea, patient states she does feel better after IV hydration. Patient's vitals stable, no tachycardia or unstable vitals. Patient appears to be in no distress. No vaginal or pelvic pain, no vaginal bleeding. Discussed with patient starting her on vitamin B6 as well as doxylamine vomiting. Patient advised to still continue Reglan per [facility] instructions. Advised to follow-up with [facility] tomorrow, patient has persistent vomiting. Patient remained stable throughout duration of stay. I have reevaluated this patient multiple times and no significant life threatening changes, no signs of toxicity, sepsis or peritonitis are noted. The patient and I have discussed the diagnosis and risks, and we agree with discharging home and close follow-up. We also discussed returning to the Emergency Department immediately if new or worsening symptoms occur with the understanding that symptoms and presentations can change. At this time will discharge with return precautions and follow-up recommendations. Verbal discharge instructions given a the bedside and opportunity for questions given. We have discussed the symptoms which are most concerning (e.g., persistent vomiting, abdominal pain, vaginal bleeding, fever, changing or worsening pain) that necessitate immediate return. Medication warnings reviewed. All questions and concerns answered by this provider. Patient is in agreement with this plan and has verbalized understanding of re turn precautions and the need for primary care follow-up in the next 24-72 hours. Patient verbalized understanding of plan of care and agree with plan of care. - Vital Signs Vital signs: Temp Pulse Resp BP Pulse Ox 98.9 F 81 20 114/51 L 100 07/08/18 12:57 07/08/18 12:57 07/08/18 12:57 07/08/18 12:57 07/08/18 12:57 - Laboratory Laboratory results interpreted by me: 07/08/18 10:06 Urine Protein 30 H Urine Ketones TRACE H Ur Leukocyte Esterase TRACE H Urine HCG, Qual POSITIVE H Discharge - Discharge Clinical Impression: UTI (urinary tract infection), Dehydration, Hyperemesis gravidarum before end of 22 week gestation with dehydration Disposition: HOME, SELF-CARE Instructions: Antinausea Medication ([facility]), Intravenous (IV) Fluids ([facility]), Ni trofurantoin ([facility]), ([facility]), Vomiting ([facility]) Prescriptions: RX: Doxylamine Succinate [Unisom] 25 mg PO PRN PRN #10 tablet PRN Reason: RX: Nitrofurantoin Macrocrystal [Macrodantin] 100 mg PO BID #14 capsule RX: Pyridoxine HCl (Vitamin B6) [B-6] 200 mg PO DAILY PRN #15 tablet.er PRN Reason: Forms: Return to Work Referrals: VANDANA DELANEY MD [ACTIVE STAFF] - Follow up tomorrow
[2018-07-08 10:42] LABS: APPEARANCE,URINE CLOUDY; BILIRUBIN,URINE NEGATIVE (NEGATIVE); COLOR,URINE YELLOW; GLUCOSE, URINE NEGATIVE (NEGATIVE); KETONES,URINE TRACE mg/dL (NEGATIVE); LEUKOCYTE ESTERASE,URINE TRACE (NEGATIVE); NITRITE,URINE NEGATIVE (NEGATIVE); PROTEIN,URINE 30 mg/dL (NEGATIVE); URINE SPECIFIC GRAVITY 1.017; UROBILINOGEN,URINE NEGATIVE mg/dL (<2.0)
[2018-07-08] MEDS ORDERED: DEXTROSE 5%-1/2 NORMAL SALINE 500 ML IV PRN (11:02)
[2018-07-08 12:58] VITALS: BP 114/51
== END 2018-07-08 13:34 | disposition home or self-care (01) ==
LOC: ER 09:07
DX: O23.41 Unspecified infection of urinary tract in pregnancy, first trimester (principal); O21.0 Mild hyperemesis gravidarum; Z3A.12 12 weeks gestation of pregnancy; Z88.0 Allergy status to penicillin; Z88.3 Allergy status to other anti-infective agents
CPT/HCPCS: 99284; 96361; 96374; 36415; 87086; 81025; 81001; J2405; J7070

== ENCOUNTER 2018-07-20 08:57 | Emergency (ER) | payer MEDICAID ==
[2018-07-20 10:13] LABS: ABSOLUTE LYMPHOCYTES (AUTO) 1.7 10^3/uL (0.5-4.7); ABSOLUTE MONOCYTES (AUTO) 0.4 10^3/uL (0.1-1.4); ABSOLUTE NEUT (AUTO) 4.9 10^3/uL (1.7-8.2); BASOPHILS % (AUTO) 0.4 % (0-2); EOSINOPHILS % (AUTO) 0.7 % (0-6); HEMATOCRIT 36.7 % (36.0-47.0); HEMOGLOBIN 11.5 g/dL (12.0-15.5); LYMPHOCYTES % (AUTO) 23.8 % (13-45); MEAN CORPUSCULAR HEMOGLOBIN 24.2 pg (27.0-33.4); MEAN CORPUSCULAR HGB CONC 31.4 g/dL (32.0-36.0); MEAN CORPUSCULAR VOLUME 77 fl (80-97); MONOCYTES % (AUTO) 5.5 % (3-13); PLATELET COUNT 194 10^3/uL (150-450); RED BLOOD COUNT 4.76 10^6/uL (3.72-5.28); RED CELL DISTRIBUTION WIDTH 14.1 % (11.5-14.0); SEGMENTED NEUTROPHILS % (AUTO) 69.6 % (42-78); TOTAL CELLS COUNTED % (AUTO) 100 %
[2018-07-20 10:20] LABS: AMORPHOUS SEDIMENT,URINE 2+ /HPF; APPEARANCE,URINE TURBID; BILIRUBIN,URINE NEGATIVE (NEGATIVE); COLOR,URINE DARK YELLOW; GLUCOSE, URINE NEGATIVE (NEGATIVE); KETONES,URINE 80 mg/dL (NEGATIVE); LEUKOCYTE ESTERASE,URINE SMALL (NEGATIVE); NITRITE,URINE NEGATIVE (NEGATIVE); PROTEIN,URINE 100 mg/dL (NEGATIVE); URINE SPECIFIC GRAVITY 1.025; UROBILINOGEN,URINE NEGATIVE mg/dL (<2.0)
[2018-07-20] MEDS ORDERED: PROMETHAZINE HCL 25 MG TABLET PO ONE (10:26)
--- NOTE | 2018-07-20 10:32 | ER Document Report ---
ED GI/ - General Chief Complaint: Vomiting Stated Complaint: VOMITING Time Seen by Provider: 07/20/18 10:23 Notes: Patient says that she is been vomiting almost nonstop since about 7 PM last night. Has mild generalized abdominal pain and cramping. No diarrhea. Has occasional constipation. Does not feel that way now. Patient is about 14 weeks . This is her first . Not having any vaginal bleeding or problems with the . Denies any UTI symptoms except urinary frequency. No abdominal surgeries. On no regular prescription medications. TRAVEL OUTSIDE OF THE [place] IN LAST 30 DAYS: No - Related Data Allergies/Adverse Reactions: clindamycin [Clindamycin] Allergy (Intermediate, Verified 07/20/18 08:58) burning, SOB cephalexin [Cephalexin] Allergy (Verified 07/20/18 08:58) Penicillins Allergy (Verified 07/20/18 08:58) naproxen [From Naprosyn] Adverse Reaction (Verified 07/20/18 08:58) VOMITING Past Medical History - Social History Smoking Status: Former Smoker Chew tobacco use (# tins/day): No Frequency of alcohol use: None Drug Abuse: None Family History: Reviewed & Not Pertinent Patient has suicidal ideation: No Patient has homicidal ideation: No Neurological Medical History: Denies: Hx Migraine - Immunizations Hx Diphtheria, Pertussis, Tetanus Vaccination: Yes Review of Systems - Review of Systems Notes: REVIEW OF SYSTEMS: CONSTITUTIONAL : Denies fever. EENT: Denies eye, ear, nose or mouth or throat pain or other symptoms. CARDIOVASCULAR: Denies chest pain. RESPIRATORY: Denies cough, chest congestion, or shortness of breath. GASTROINTESTINAL: See HPI. GENITOURINARY: Has urinary frequency. Denies difficulty or painful urinating, blood in urine. MUSCULOSKELETAL: Denies back or neck pain. Denies joint pain or swelling. SKIN: Denies rash or skin lesions. NEUROLOGICAL: Denies LOC or altered mental status. Denies headache. Denies sensory loss or motor deficits. ALL OTHER SYSTEMS REVIEWED AND NEGATIVE. Physical Exam - Vital signs Vitals: Temp Pulse Resp BP Pulse Ox 98.0 F 102 H 20 134/78 H 100 07/20/18 09:18 07/20/18 09:18 07/20/18 09:18 07/20/18 09:18 07/20/18 09:18 Interpretation: Normal - Heart rate 102 in triage Notes: PHYSICAL EXAMINATION: GENERAL: Well-appearing, in no acute distress. Vital signs are all essentially normal. HEAD: Atraumatic, normocephalic. EYES: Pupils equal round and reactive to light, extraocular movements intact. ENT: oropharynx clear without exudates. Moist mucous membranes. NECK: Normal range of motion, supple. LUNGS: Breath sounds clear and equal bilaterally. HEART: Regular rate and rhythm without murmurs. ABDOMEN: Soft, nontender. No guarding or rebound. No masses. BACK: No tenderness throughout entire back. EXTREMITIES: Normal range of motion without pain. NEUROLOGICAL: Normal speech, normal gait. Normal sensory, motor, and reflex exams. Awake, alert, and oriented x3. Cranial nerves normal. PSYCH: Normal mood, normal affect. SKIN: Warm, dry, no rashes. Course - Re-evaluation Re-evalutation: 07/20/18 12:04 Labs show her urinalysis with a likely UTI and high ketones. Starting her second unit of saline now. I discussed the patient's urine findings and she says that she has been on an antibiotic that starts with the letter M for a couple of days for a UTI. She seems to think that Macrobid is the medication. She is allergic to penicillins and cephalosporins, breaking out in hives when she is taking them in the past. I have cultured the patient's urine and will check on the results in a couple of days to see if there is more clarity about how to treat her possible UTI. 07/20/18 13:41 Patient has finished her second liter of saline. She is been taking water by mouth and keeping it down. Says she feels much better. I told her that I will check her urine culture and call her if we need to adjust her medications. She will be given Phenergan to take for her nausea and vomiting. - Vital Signs Vital signs: Temp Pulse Resp BP Pulse Ox 98.0 F 102 H 20 134/78 H 100 07/20/18 09:18 07/20/18 09:18 07/20/18 09:18 07/20/18 09:18 07/20/18 09:18 - Laboratory Result Diagrams: 07/20/18 09:55 07/20/18 09:55 Laboratory results interpreted by me: 07/20/18 07/20/18 07/20/18 09:55 09:55 09:55 Hgb 11.5 L MCV 77 L MCH 24.2 L MCHC 31.4 L RDW 14.1 H Sodium 135.4 L BUN 6 L Creatinine 0.51 L Urine Protein 100 H Urine Ketones 80 H Ur Leukocyte Esterase SMALL H Urine HCG, Qual POSITIVE H Discharge - Discharge Clinical Impression: , Vomiting, Hyperemesis, Urinary tract infection Condition: Stable Disposition: HOME, SELF-CARE Additional Instructions: Hyperemesis Gravidarum Hyperemesis gravidarum is the medical term for severe vomiting during . We don't know exactly why it occurs, but it's a common problem. Dehydration can occur. This reduces blood flow to the placenta, decreasing the baby's nourishment. The baby will also become dehydrated. There can be harmful changes in blood sodium, potassium, or acid balance. Our goal is to correct, and prevent, dehydration. For severe cases, we give IV fluids. Antinausea medication will be prescribed. (Don't be concerned about " defects" -- the risk to you and your baby from the hyperemesis is the biggest problem. The antinausea medication is very safe at this stage of .) Call the doctor if you have vaginal bleeding, abdominal pain, severe lightheadedness or weakness, or other alarming symptoms. Vomiting Vomiting can be part of many illnesses. Most cases of vomiting are due to gastroenteritis, usually a viral infection in the intestinal tract. There is no specific treatment. The disease will end by itself. For now, the main danger to your child is dehydration. During the first few hours of the illness, give clear liquids, such as Pedialyte. Try to give small quantities frequently, such as a teaspoon of liquid every minute or about an ounce of fluids every five to ten minutes. Medications may be prescribed by the physician for special cases. After an hour or two of fluids without vomiting, add rice cereal, toast, applesauce, or bananas and other more solid foods to the clear liquids. Call the physician or go to the hospital if vomiting increases or blood appears in the bowel movement or vomitus; if your child fails to improve, or if signs of dehydration occur (no wet diapers for eight to twelve hours, tongue and mouth become dry, not acting as alert as usual). Dehydration Dehydration can result from vomiting or diarrhea, fever, or decreased intake of fluids. If severe, hospitalization and intravenous fluids may be required. Most cases are treated at home with fluids by mouth. For the next 24 hours, drink lots of clear fluids. In mild cases, this can be soda pop or sports drinks. For more severe dehydration, the doctor may recommend special fluids such as Pedialyte or Lytren. Try to get three liters (3 quarts) of fluid per day. If vomiting occurs, continue to drink the fluids frequently (every 15 to 20 minutes), but in small amounts (one or two ounces). Depending on the type of dehydration, the doctor may prescribe antinausea medicine or potassium replacements. Call the doctor or return for re-examination if you become progressively weak, vomit repeatedly, or have other new symptoms. INTRAVENOUS (I V) FLUIDS: As part of your care today, you received intravenous (IV) fluids. IV fl uids are administered to patients who are dehydrated or to those who have certain chemical (electrolyte) abnormalities that need correcting. ANTINAUSEA MEDICATION: You have been given a medication to suppress nausea and vomiting. This type of medication can be given as a shot, pill, or suppository. It will usually last for many hours. Pills and shots usually last six to eight hours. For the typical illness, only one or two doses of the medication may be necessary. Mild lightheadedness may occur. This type of medicine can cause drowsiness. Do not drive or operate dangerous machinery while under its influence. Do not mix with alcohol. See your doctor at once if you have muscle spasms or tightness, or uncontrollable motions (particularly of the neck, mouth, or jaw). Persistent vomiting or severe lightheadedness should also be evaluated by the physician. You may continue to take your REGLAN (METOCLOPRAMIDE): Reglan has been prescribed. This medicine affects the stomach and intestines. It can be used to treat nausea and vomiting, to prevent reflux of stomach acid up into the esophagus, or to increase the contractions of the stomach and intestines. It is often prescribed for esophagitis, and for paralysis of the stomach in diabetics. Reglan can cause either mild restlessness or drowsiness. You should contact the doctor at once if you become extremely restless, anxious, or cannot sleep, or if you develop uncontrollable motions of the lips, tongue, or jaw. Do not take alcohol with this medicine. Do not drive or operate machinery until you have been taking this medicine long enough to know how it affects you. Call the doctor if you develop abdominal pains, lightheadedness, black stool, or blood in the stool or vomitus. I am also prescribing Phenergan for your nausea and vomiting. FOLLOW-UP CARE: If you have been referred to a physician for follow-up care, call the physicians office for an appointment as you were instructed or within the next two days. If you experience worsening or a significant change in your symptoms, notify the physician immediately or return to the Emergency Department at any time for re-evaluation. Prescriptions: Promethazine HCl [Phenergan 25 mg Tablet] 1 - 2 tab PO Q6H PRN #30 tablet PRN Reason: Forms: Return to Work Referrals: JESSICA MATA MD [Primary Care Provider] - Follow up as needed
[2018-07-20 10:34] LABS: ALANINE AMINOTRANSFERASE 27 U/L (9-52); ALBUMIN 3.9 g/dL (3.5-5.0); ALKALINE PHOSPHATASE 64 U/L (38-126); ANION GAP 6 (5-19); ASPARTATE AMINO TRANSFERASE 17 U/L (14-36); BILIRUBIN,DIRECT 0.1 mg/dL (0.0-0.4); BILIRUBIN,TOTAL 0.3 mg/dL (0.2-1.3); BLOOD UREA NITROGEN 6 mg/dL (7-20); CALCIUM 9.7 mg/dL (8.4-10.2); CARBON DIOXIDE 25 mmol/L (22-30); CHLORIDE 104 mmol/L (98-107); GLUCOSE 93 mg/dL (75-110); POTASSIUM 3.9 mmol/L (3.6-5.0); SODIUM 135.4 mmol/L (137-145); TOTAL PROTEIN 6.7 g/dL (6.3-8.2)
[2018-07-20] MEDS: NORMAL SALINE 1000 ML 1,000 ML IV PRN ×2 (10:43→11:54)
[2018-07-20 14:07] VITALS: BP 110/63
== END 2018-07-20 14:07 | disposition home or self-care (01) ==
LOC: ER 08:57
DX: O21.0 Mild hyperemesis gravidarum (principal); O23.40 Unspecified infection of urinary tract in pregnancy, unspecified trimester; O26.899 Other specified pregnancy related conditions, unspecified trimester; R10.84 Generalized abdominal pain; Z87.891 Personal history of nicotine dependence; Z88.1 Allergy status to other antibiotic agents; Z88.0 Allergy status to penicillin; Z3A.00 Weeks of gestation of pregnancy not specified
CPT/HCPCS: 99283; 96360; 96361; 36415; 87086; 85025; 81025; 87088; 80053; 81001; 87186; J3490; J7030

== ENCOUNTER 2018-07-21 08:12 | Emergency (ER) | payer MEDICAID ==
[2018-07-21] MEDS ORDERED: PROMETHAZINE HCL INJ 25 MG/1 ML VIAL IV ONE (09:01)
[2018-07-21 09:02] LABS: ABSOLUTE LYMPHOCYTES (AUTO) 1.6 10^3/uL (0.5-4.7); ABSOLUTE MONOCYTES (AUTO) 0.4 10^3/uL (0.1-1.4); ABSOLUTE NEUT (AUTO) 5.7 10^3/uL (1.7-8.2); BASOPHILS % (AUTO) 0.5 % (0-2); EOSINOPHILS % (AUTO) 0.4 % (0-6); HEMATOCRIT 35.3 % (36.0-47.0); HEMOGLOBIN 11.2 g/dL (12.0-15.5); LYMPHOCYTES % (AUTO) 20.6 % (13-45); MEAN CORPUSCULAR HEMOGLOBIN 24.4 pg (27.0-33.4); MEAN CORPUSCULAR HGB CONC 31.8 g/dL (32.0-36.0); MEAN CORPUSCULAR VOLUME 77 fl (80-97); PLATELET COUNT 178 10^3/uL (150-450); RED CELL DISTRIBUTION WIDTH 13.8 % (11.5-14.0); SEGMENTED NEUTROPHILS % (AUTO) 73.5 % (42-78); TOTAL CELLS COUNTED % (AUTO) 100 %; WHITE BLOOD COUNT 7.7 10^3/uL (4.0-10.5)
--- NOTE | 2018-07-21 09:03 | ER Document Report ---
ED General - General Chief Complaint: Vomiting Stated Complaint: VOMITING Time Seen by Provider: 07/21/18 08:42 TRAVEL OUTSIDE OF THE [place] IN LAST 30 DAYS: No - HPI Notes: Patient is a 33-year-old female that presents to the emergency department for chief complaint of nausea and vomiting. Patient is at roughly 14 weeks gestation. She presents for increased nausea and vomiting. She was here yesterday for the same complaint and states she was feeling some improvement. She was given Phenergan yesterday but states she threw it up last night when she got home. She has had increased vomiting si nce 11 PM last night. She denies any vaginal bleeding or discharge. She denies any vaginal pain. She states she has been told that she likely has hyperemesis gravidarum. She presents today concerned that she is unable to keep any fluids down. She denies fevers and chills. Past Medical History: Negative Past Surgical History: Negative Social History: Denies drugs alcohol and tobacco Family History: Reviewed and noncontributory for presenting illness Allergies: Reviewed, see documented allergy list. REVIEW OF SYSTEMS: CONSTITUTIONAL : No fever No chills No diaphoresis No recent illness EENT: No vision changes No congestion No sore throat CARDIOVASCULAR: No chest pain No palpitations RESPIRATORY: No shortness of breath No cough No difficulty breathing GASTROINTESTINAL: No abdominal pain nausea vomiting No diarrhea GENITOURINARY: No dysuria No hematuria No difficulty urinating MUSCULOSKELETAL: No back pain No leg pain No arm pain SKIN: No rashes No lesions LYMPHATIC: No swollen, enlarged glands. NEUROLOGICAL: No lightheadedness No headache No weakness No paresthesias PSYCHIATRIC: No anxiety No depression PHYSICAL EXAMINATION: Vital signs reviewed, nursing noted reviewed. GENERAL: Well-appearing, well-nourished and in no acute distress. HEAD: Atraumatic, normocephalic. EYES: Eyes appear normal, extraocular movements intact, sclera anicteric, conjunctiva are normal. ENT: nares patent, oropharynx clear without exudates. Dry mucous membranes. NECK: Normal range of motion, supple without lymphadenopathy LUNGS: Breath sounds clear to auscultation bilaterally and equal. No wheezes rales or rhonchi. HEART: Tachycardic and regular rhythm without murmurs ABDOMEN: Unable to palpate uterus because of body habitus, abdomen soft, nontender, normoactive bowel sounds. No rebound, guarding, or rigidity. No masses appreciated. EXTREMITIES: Nontender, good range of motion, no pitting or edema. NEUROLOGICAL: No focal neurological deficits. Moves all extremities spontaneously Motor and sensory grossly intact on exam. PSYCH: Normal mood, normal affect. SKIN: Warm, Dry, normal turgor, no rashes or lesions noted on exposed skin - Related Data Allergies/Adverse Reactions: clindamycin [Clindamycin] Allergy (Intermediate, Verified 07/20/18 08:58) burning, SOB cephalexin [Cephalexin] Allergy (Verified 07/20/18 08:58) Penicillins Allergy (Verified 07/20/18 08:58) naproxen [From Naprosyn] Adverse Reaction (Verified 07/20/18 08:58) VOMITING Past Medical History - Social History Smoking Status: Never Smoker Family History: Reviewed & Not Pertinent Neurological Medical History: Denies: Hx Migraine Renal/ Medical History: Denies: Hx Peritoneal Dialysis - Immunizations Hx Diphtheria, Pertussis, Tetanus Vaccination: Yes Physical Exam - Vital signs Vitals: Temp Pulse Resp BP Pulse Ox 98.0 F 147 H 22 H 145/75 H 100 07/21/18 08:18 07/21/18 08:18 07/21/18 08:18 07/21/18 08:18 07/21/18 08:18 Course - Re-evaluation Re-evalutation: 07/21/18 10:50 Vitals reviewed. Nursing notes reviewed. Patient initially presented tachycardic. After IV resuscitation her tachycardia has completely resolved. She is tolerating eating ice chips and drinking sips of fluids. She still feels nauseated but has not had any vomiting in the emergency room. Her lab work is unremarkable. She is afebrile and nontoxic in appearance. Patient will follow closely with DRUM PULLER for further management of her hyperemesis gravidarum. She is stable at time of discharge. She was counseled on hydration and indications to return. She is in agreement with this plan and stable at discharge. Laboratory 07/21/18 07/21/18 07/21/18 08:42 08:42 08:42 WBC 7.7 RBC 4.60 Hgb 11.2 L Hct 35.3 L MCV 77 L MCH 24.4 L MCHC 31.8 L RDW 13.8 Plt Count 178 Seg Neutrophils % 73.5 Lymphocytes % 20.6 Monocytes % 5.0 Eosinophils % 0.4 Basophils % 0.5 Absolute Neutrophils 5.7 Absolute Lymphocytes 1.6 Absolute Monocytes 0.4 Absolute Eosinophils 0.0 Absolute Basophils 0.0 Sodium 136.7 L Potassium 3.7 Chloride 106 Carbon Dioxide 23 Anion Gap 8 BUN 3 L Creatinine 0.50 L Est GFR ( Amer) > 60 Est GFR (Non-Af Amer) > 60 Glucose 97 Calcium 9.4 Total Bilirubin 0.4 Direct Bilirubin 0.3 Neonat Total Bilirubin Not Reportable Neonat Direct Bilirubin Not Reportable Neonat Indirect Bili Not Reportable AST 15 ALT 25 Alkaline Phosphatase 59 Total Protein 6.7 Albumin 3.8 Urine Color YELLOW Urine Appearance CLOUDY Urine pH 7.0 Ur Specific [place] 1.016 Urine Protein 30 H Urine Glucose (UA) 50 H Urine Ketones 80 H Urine Blood NEGATIVE Urine Nitrite NEGATIVE Urine Bilirubin NEGATIVE Urine Urobilinogen 2.0 H Ur Leukocyte Esterase NEGATIVE Urine WBC (Auto) 3 Urine RBC (Auto) 1 Urine Bacteria (Auto) 1+ Squamous Epi Cells Auto 31 Amorphous Sediment Auto TRACE Urine Mucus (Auto) MANY Urine Ascorbic Acid NEGATIVE - Vital Signs Vital signs: Temp Pulse Resp BP Pulse Ox 98.6 F 87 16 121/67 100 07/21/18 10:32 07/21/18 10:32 07/21/18 10:32 07/21/18 10:32 07/21/18 10:32 - Laboratory Result Diagrams: 07/21/18 08:42 07/21/18 08:42 Laboratory results interpreted by me: 07/21/18 07/21/18 07/21/18 08:42 08:42 08:42 Hgb 11.2 L Hct 35.3 L MCV 77 L MCH 24.4 L MCHC 31.8 L Sodium 136.7 L BUN 3 L Creatinine 0.50 L Urine Protein 30 H Urine Glucose (UA) 50 H Urine Ketones 80 H Urine Urobilinogen 2.0 H Discharge - Discharge Clinical Impression: Vomiting affecting Condition: Stable Disposition: HOME, SELF-CARE Instructions: Vomiting ([facility]) Prescriptions: Promethazine HCl [Phenergan 25 mg Supp.rect] 1 supp MI Q6H #12 supp.rect Referrals: JESSICA MATA MD [Primary Care Provider] - Follow up as needed [facility] [Provider Group] - Follow up in 3-5 days
[2018-07-21] MEDS: NORMAL SALINE 1000 ML 1,000 ML IV PRN ×2 (09:08→10:14)
[2018-07-21 09:24] LABS: AMORPHOUS SEDIMENT,URINE TRACE /HPF; APPEARANCE,URINE CLOUDY; BILIRUBIN,URINE NEGATIVE (NEGATIVE); COLOR,URINE YELLOW; GLUCOSE, URINE 50 mg/dL (NEGATIVE); KETONES,URINE 80 mg/dL (NEGATIVE); LEUKOCYTE ESTERASE,URINE NEGATIVE (NEGATIVE); NITRITE,URINE NEGATIVE (NEGATIVE); PROTEIN,URINE 30 mg/dL (NEGATIVE); URINE SPECIFIC GRAVITY 1.016
[2018-07-21 09:27] LABS: ALANINE AMINOTRANSFERASE 25 U/L (9-52); ALBUMIN 3.8 g/dL (3.5-5.0); ALKALINE PHOSPHATASE 59 U/L (38-126); ANION GAP 8 (5-19); ASPARTATE AMINO TRANSFERASE 15 U/L (14-36); BILIRUBIN,DIRECT 0.3 mg/dL (0.0-0.4); BILIRUBIN,TOTAL 0.4 mg/dL (0.2-1.3); BLOOD UREA NITROGEN 3 mg/dL (7-20); CALCIUM 9.4 mg/dL (8.4-10.2); CARBON DIOXIDE 23 mmol/L (22-30); CHLORIDE 106 mmol/L (98-107); GLUCOSE 97 mg/dL (75-110); POTASSIUM 3.7 mmol/L (3.6-5.0); SODIUM 136.7 mmol/L (137-145); TOTAL PROTEIN 6.7 g/dL (6.3-8.2)
[2018-07-21] MEDS ORDERED: METOCLOPRAMIDE HCL INJ/PF 10 MG/2 ML SDV IV ONE (12:00)
[2018-07-21 12:02] VITALS: BP 116/68
== END 2018-07-21 12:35 | disposition home or self-care (01) ==
LOC: ER 08:12
DX: O21.0 Mild hyperemesis gravidarum (principal); O26.899 Other specified pregnancy related conditions, unspecified trimester; R00.0 Tachycardia, unspecified; Z3A.00 Weeks of gestation of pregnancy not specified; Z88.1 Allergy status to other antibiotic agents; Z88.0 Allergy status to penicillin
CPT/HCPCS: 99284; 96361; 96374; 96375; 36415; 85025; 80053; 81001; J2765; J2550; J7030

== ENCOUNTER 2018-08-11 11:46 | Observation (INO) | payer MEDICAID ==
[2018-08-11 13:50] LABS: ALANINE AMINOTRANSFERASE 14 U/L (9-52); ALBUMIN 3.8 g/dL (3.5-5.0); ALKALINE PHOSPHATASE 60 U/L (38-126); ANION GAP 9 (5-19); ASPARTATE AMINO TRANSFERASE 16 U/L (14-36); BILIRUBIN,DIRECT 0.2 mg/dL (0.0-0.4); BILIRUBIN,TOTAL 0.4 mg/dL (0.2-1.3); BLOOD UREA NITROGEN 5 mg/dL (7-20); CALCIUM 9.5 mg/dL (8.4-10.2); CARBON DIOXIDE 23 mmol/L (22-30); CHLORIDE 105 mmol/L (98-107); GLUCOSE 90 mg/dL (75-110); POTASSIUM 3.8 mmol/L (3.6-5.0); SODIUM 136.5 mmol/L (137-145); TOTAL PROTEIN 6.4 g/dL (6.3-8.2)
[2018-08-11] MEDS ORDERED: PROMETHAZINE HCL INJ 25 MG/1 ML VIAL ONE (14:36)
[2018-08-11] MEDS ORDERED: ONDANSETRON HCL INJ/PF 4 MG/2 ML SDV IV PRN (14:49)
[2018-08-11] MEDS ORDERED: PROMETHAZINE HCL INJ 25 MG/1 ML VIAL IV PRN (14:49)
[2018-08-11] MEDS ORDERED: NORMAL SALINE 1000 ML 1,000 ML with POTASSIUM CHLORIDE 20 MEQ, MAGNESIUM SULFATE 8 MEQ,... IV SCH ×5 (18:00)
[2018-08-11] MEDS ORDERED: DIPHENHYDRAMINE HCL 25 MG CAPSULE PO PRN (22:18)
[2018-08-11] MEDS: DEXTROSE 5%-LACTATED RINGERS 1,000 ML IV PRN (23:53)
[2018-08-12] MEDS: DEXTROSE 5%-LACTATED RINGERS 1,000 ML IV PRN (05:06)
[2018-08-12 07:29] LABS: ALANINE AMINOTRANSFERASE 16 U/L (9-52); ALBUMIN 2.6 g/dL (3.5-5.0); ALKALINE PHOSPHATASE 42 U/L (38-126); ANION GAP 5 (5-19); ASPARTATE AMINO TRANSFERASE 13 U/L (14-36); BILIRUBIN,DIRECT 0.2 mg/dL (0.0-0.4); BILIRUBIN,TOTAL 0.4 mg/dL (0.2-1.3); BLOOD UREA NITROGEN 3 mg/dL (7-20); CALCIUM 8.5 mg/dL (8.4-10.2); CARBON DIOXIDE 24 mmol/L (22-30); CHLORIDE 108 mmol/L (98-107); GLUCOSE 99 mg/dL (75-110); SODIUM 136.6 mmol/L (137-145)
--- NOTE | 2018-08-12 09:44 | PDOC DISCHARGE SUMMARY ---
General - Admit/Disc Date/PCP Admission Date/Primary Care Provider: 08/11/18 11:46 JESSICA MATA MD Discharge Date: 08/12/18 - Discharge Diagnosis (1) Nausea and vomiting during Is this a current diagnosis for this admission?: Yes - Additional Information Home Medications: Hydrocodone/Acetaminophen [[place] 5-325 Tablet] 1 each PO QID #15 tablet 09/20/15 Sulfamethoxazole/Trimethoprim [Bactrim Ds Tablet] 1 each PO BID #10 tablet 09/20/15 Nitrofurantoin/Nitrofuran Mac [Macrobid 100 mg Capsule] 1 tab PO BID #14 capsule 03/20/16 Ondansetron [Zofran Odt 4 mg Tablet] 1 tab PO Q4H PRN #10 tab.rapdis 03/20/16 Doxycycline Hyclate 100 mg PO BID #14 capsule 08/13/16 Ibuprofen [Motrin 800 mg Tablet] 800 mg PO Q8HP PRN #30 tablet 11/12/16 Sulfamethoxazole/Trimethoprim [Sulfamethoxazole-Tmp Ds Tablet] 1 each PO BID #14 tablet 11/12/16 Cyclobenzaprine HCl [Flexeril 5 mg Tablet] 5 mg PO TID PRN #15 tablet 05/07/17 Metronidazole [Metrogel 0.75% Vaginal Gel] 5 applic VG QHS #1 tube 05/18/18 Ondansetron [Zofran Odt 4 mg Tablet] 1 tab PO Q4H PRN #15 tab.rapdis 05/18/18 Doxylamine Succinate [Unisom] 25 mg PO PRN PRN #10 tablet 07/08/18 Nitrofurantoin Macrocrystal [Macrodantin] 100 mg PO BID #14 capsule 07/08/18 Pyridoxine HCl (Vitamin B6) [B-6] 200 mg PO DAILY PRN #15 tablet.er 07/08/18 Promethazine HCl [Phenergan 25 mg Tablet] 1 - 2 tab PO Q6H PRN #30 tablet 07/20/18 Promethazine HCl [Phenergan 25 mg Supp.rect] 1 supp DC Q6H #12 supp.rect 07/21/18 History of Present Illness Patient complains of: Nausea and vomiting History of Present Illness: NAKUL BARROSO is a 33 year old female admitted from the office with intractable nausea and vomiting Hospital Course Hospital Course: pt hydrated and now feels better and is tolerationg liquid diet ans she request to be disharged Physical Exam - Physical Exam Vital Signs: Temp Pulse Resp BP Pulse Ox 98.0 F 77 16 94/47 L 100 08/12/18 07:48 08/12/18 07:48 08/12/18 07:48 08/12/18 07:48 08/12/18 07:48 Intake & Output 08/11/18 08/12/18 08/13/18 06:59 06:59 06:59 Intake Total 1990 Output Total 500 Balance 1490 Weight 33.1 kg Result Laboratory Results: 08/12/18 06:46 08/11/18 08/12/18 13:15 06:46 Sodium 136.5 L 136.6 L Potassium 3.8 4.0 Chloride 105 108 H Carbon Dioxide 23 24 Anion Gap 9 5 BUN 5 L 3 L Creatinine 0.52 0.46 L Est GFR ( Amer) > 60 > 60 Est GFR (Non-Af Amer) > 60 > 60 Glucose 90 99 Calcium 9.5 8.5 Total Bilirubin 0.4 0.4 AST 16 13 L ALT 14 16 Alkaline Phosphatase 60 42 Total Protein 6.4 5.0 L Albumin 3.8 2.6 L Plan Discharge Plan: d/c f/u prn or regular ob appointment
[2018-08-12 10:30] VITALS: BP 115/71
== END 2018-08-12 10:49 | disposition home or self-care (01) ==
LOC: 2S 11:46
PROVIDERS: ADMIT Obstetrics & Gynecology; ATTEND Obstetrics & Gynecology
DX: O21.8 Other vomiting complicating pregnancy (principal); Z3A.17 17 weeks gestation of pregnancy
CPT/HCPCS: 36415 ×2; 80053 ×2; G0378 ×2; G0379; J3490 ×2; J3475; J3480; J2550; J3411; J2405; J7030

== ENCOUNTER 2018-08-18 14:21 | Emergency (ER) | payer MEDICAID ==
[2018-08-18] MEDS ORDERED: NORMAL SALINE 1000 ML 1,000 ML IV ONE ×2 (15:26→16:51)
[2018-08-18] MEDS ORDERED: ONDANSETRON HCL INJ/PF 4 MG/2 ML SDV IV ONE (15:26)
--- NOTE | 2018-08-18 15:28 | ER Document Report ---
ED Medical Screen (RME) - General Chief Complaint: Nausea/Vomiting Stated Complaint: VOMITTING Time Seen by Provider: 08/18/18 15:25 Primary Care Provider: JESSICA MATA MD [Primary Care Provider] - Follow up as needed Mode of Arrival: Ambulatory Information source: Patient Notes: 33-year-old female presented to ED for complaint of nausea vomiting since yesterday. Patient states she is 18 weeks and has not been able to keep anything down since yesterday. 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 She states she took Zofran this morning but did not keep it down. She is denies any diarrhea. She states she has had a headache since morning. Patient is alert oriented she is vomiting while in the pit area. She also is drinking water from a cup frequently. I have instructed her to not drink any more water until she gets her Zofran and then to wait 15 minutes and then to slowly sip water not to drink a large amount of the time. Patient is alert and oriented respirations are regular and unlabored pulse is 112 when I assessed her. Her lungs were clear to auscultation. CBC chemistry hCG urine will all be ordered as well as a liter of fluids and Zofran I have greeted and performed a rapid initial assessment of this patient. A comprehensive ED assessment and evaluation of the patient, analysis of test results and completion of medical decision making process will be conducted by an additional ED providers. TRAVEL OUTSIDE OF THE [place] IN LAST 30 DAYS: No - Related Data Allergies/Adverse Reactions: clindamycin [Clindamycin] Allergy (Intermediate, Verified 08/18/18 14:22) burning, SOB cephalexin [Cephalexin] Allergy (Verified 08/18/18 14:22) Penicillins Allergy (Verified 08/18/18 14:22) naproxen [From Naprosyn] Adverse Reaction (Verified 08/18/18 14:22) VOMITING Past Medical History - Social History Family history: Reviewed & Not Pertinent Neurological Medical History: Denies: Hx Migraine Renal/ Medical History: Denies: Hx Peritoneal Dialysis Psychiatric Medical History: Denies: Hx Depression - Immunizations Hx Diphtheria, Pertussis, Tetanus Vaccination: Yes History of Influenza Vaccine for 04/2017 - 09/2017 Season: No Physical Exam - Vital signs Vitals: Temp Pulse Resp BP Pulse Ox 98.4 F 112 H 16 140/69 H 100 08/18/18 14:26 08/18/18 14:26 08/18/18 14:26 08/18/18 14:26 08/18/18 14:26 Course - Vital Signs Vital signs: Temp Pulse Resp BP Pulse Ox 98.4 F 112 H 16 140/69 H 100 08/18/18 14:26 08/18/18 14:26 08/18/18 14:26 08/18/18 14:26 08/18/18 14:26 Doctor's Discharge - Discharge Referrals: JESSICA MATA MD [Primary Care Provider] - Follow up as needed
[2018-08-18 16:25] LABS: APPEARANCE,URINE CLOUDY; BILIRUBIN,URINE NEGATIVE (NEGATIVE); GLUCOSE, URINE 50 mg/dL (NEGATIVE); KETONES,URINE 80 mg/dL (NEGATIVE); LEUKOCYTE ESTERASE,URINE TRACE (NEGATIVE); NITRITE,URINE NEGATIVE (NEGATIVE); PROTEIN,URINE 100 mg/dL (NEGATIVE); URINE SPECIFIC GRAVITY 1.026
[2018-08-18 16:28] LABS: COLOR,URINE DARK YELLOW
[2018-08-18 16:29] LABS: ABSOLUTE LYMPHOCYTES (AUTO) 1.7 10^3/uL (0.5-4.7); ABSOLUTE MONOCYTES (AUTO) 0.4 10^3/uL (0.1-1.4); ABSOLUTE NEUT (AUTO) 7.6 10^3/uL (1.7-8.2); BASOPHILS % (AUTO) 0.3 % (0-2); EOSINOPHILS % (AUTO) 0.3 % (0-6); HEMATOCRIT 37.1 % (36.0-47.0); LYMPHOCYTES % (AUTO) 17.5 % (13-45); MEAN CORPUSCULAR HEMOGLOBIN 25.1 pg (27.0-33.4); MEAN CORPUSCULAR HGB CONC 32.5 g/dL (32.0-36.0); MEAN CORPUSCULAR VOLUME 77 fl (80-97); MONOCYTES % (AUTO) 4.3 % (3-13); PLATELET COUNT 226 10^3/uL (150-450); RED BLOOD COUNT 4.81 10^6/uL (3.72-5.28); SEGMENTED NEUTROPHILS % (AUTO) 77.6 % (42-78); TOTAL CELLS COUNTED % (AUTO) 100 %; WHITE BLOOD COUNT 9.8 10^3/uL (4.0-10.5)
--- NOTE | 2018-08-18 16:51 | ER Document Report ---
ED General - General Chief Complaint: Nausea/Vomiting Stated Complaint: VOMITTING Time Seen by Provider: 08/18/18 15:25 Primary Care Provider: JESSICA MATA MD [Primary Care Provider] - Follow up as needed Mode of Arrival: Ambulatory TRAVEL OUTSIDE OF THE [place] IN LAST 30 DAYS: No - HPI Notes: Patient is a 33-year-old female proximally 18 weeks who presents the emergency department complaining of nausea and vomiting since yesterday. Patient states that she has hyperemesis and has Phenergan and Zofran at home, but ran out of her Zofran today. Patient states that she has not kept any fluids or any foods down over the last 24 hours. She came to the emergency department for hydration. She is otherwise urinating and having normal bowel movements. She has not had any vaginal discharge, odor, or bleeding. No other concerns or complaints. She has no associated abdominal pain. Denies any headache, fever, neck pain/stiffness, URI, sore throat, chest pain, palpitations, syncope, cough, shortness of breath, wheeze, dyspnea, abdominal pain, diarrhea, urinary retention, dysuria, hematuria, or rash. - Related Data Allergies/Adverse Reactions: clindamycin [Clindamycin] Allergy (Intermediate, Verified 08/18/18 14:22) burning, SOB cephalexin [Cephalexin] Allergy (Verified 08/18/18 14:22) Penicillins Allergy (Verified 08/18/18 14:22) naproxen [From Naprosyn] Adverse Reaction (Verified 08/18/18 14:22) VOMITING Past Medical History - General Information source: Patient - Social History Smoking Status: Former Smoker Chew tobacco use (# tins/day): No Frequency of alcohol use: None Drug Abuse: None Family History: Reviewed & Not Pertinent Patient has suicidal ideation: No Patient has homicidal ideation: No Neurological Medical History: Denies: Hx Migraine Renal/ Medical History: Denies: Hx Peritoneal Dialysis Psychiatric Medical History: Denies: Hx Depression - Immunizations Hx Diphtheria, Pertussis, Tetanus Vaccination: Yes Review of Systems - Review of Systems -: Yes All other systems reviewed and negative Physical Exam - Vital signs Vitals: Temp Pulse Resp BP Pulse Ox 98.4 F 112 H 16 140/69 H 100 08/18/18 14:26 08/18/18 14:26 08/18/18 14:26 08/18/18 14:26 08/18/18 14:26 - Notes Notes: PHYSICAL EXAMINATION: GENERAL: Well-appearing, well-nourished and in no acute distress. HEAD: Atraumatic, normocephalic. EYES: Pupils equal round and reactive to light, extraocular movements intact, s clera anicteric, conjunctiva are normal. ENT: Nares patent and without discharge. oropharynx clear without exudates. No tonsilar hypertrophy or erythema. Moist mucous membranes. NECK: Normal range of motion, supple without lymphadenopathy LUNGS: Breath sounds clear to auscultation bilaterally and equal. No wheezes rales or rhonchi. HEART: Regular rate and rhythm without murmurs, rubs, gallops. ABDOMEN: Soft, nontender, nondistended abdomen. No guarding, no rebound. No masses appreciated. Normal bowel sounds present. No CVA tenderness bilaterally. Musculoskeletal: FROM to passive/active. Strength 5+/5. Extremities: No cyanosis, clubbing, or edema b/l. Peripheral pulses 2+. Capillary refill less than 3 seconds. NEUROLOGICAL: Cranial nerves grossly intact. Normal speech, normal gait. PSYCH: Normal mood, normal affect. SKIN: Warm, Dry, normal turgor, no rashes or lesions noted. Course - Re-evaluation Re-evalutation: 08/18/18 17:46 Patient is an afebrile, well-hydrated, 33-year-old female who presents to the emergency department with nausea and vomiting in the setting of . Vitals are acceptable without significant tachycardia, tachypnea, or hypoxia. PE is otherwise unremarkable. Patient's abdomen is soft and nontender. She is nontoxic-appearing and is currently tolerating p.o. without difficulty. She did receive fluids as well as nausea medicine. Patient states that she is feeling better. Patient states that she has a per scription for nausea medicine waiting for her at the pharmacy already. Lab work shows mild dehydration. Low suspicion/risk for acute appendicitis, bowel obstruction, acute cholecystitis, acute cholangitis, perforated diverticulitis, incarcerated hernia, pancreatitis, perforated ulcer, peritonitis, sepsis, pelvic inflammatory disease, ovarian tor diallo, or other systemic emergent condition at this time. Patient is aware that her condition can change from initial presentation and she needs to monitor symptoms closely and seek medical attention if any acute changes. Conservative measures otherwise for symptoms. Recheck with your PCM/VOCATIONAL TRAINING INSTRUCTOR in 2-3 days. Return to the ED with any worsening/concerning symptoms otherwise as reviewed in discharge. Patient is in agreement. - Vital Signs Vital signs: Temp Pulse Resp BP Pulse Ox 98.4 F 112 H 16 140/69 H 100 08/18/18 14:26 08/18/18 14:26 08/18/18 14:26 08/18/18 14:26 08/18/18 14:26 - Laboratory Result Diagrams: 08/18/18 15:50 08/18/18 15:50 Laboratory results interpreted by me: 08/18/18 08/18/18 08/18/18 15:50 15:50 16:04 MCV 77 L MCH 25.1 L BUN 4 L Creatinine 0.50 L AST 43 H Beta HCG, Quant 29088.00 H Urine Protein 100 H Urine Glucose (UA) 50 H Urine Ketones 80 H Urine Urobilinogen 2.0 H Ur Leukocyte Esterase TRACE H Urine Ascorbic Acid 40 H Discharge - Discharge Clinical Impression: Nausea and vomiting during Condition: Stable Disposition: HOME, SELF-CARE Additional Instructions: Maintain adequate fluid and food intake [place] diet ([employer] Bananas, rice, apples, toast, etc Zofran/Phenergan as needed tylenol if needed Monitor for any worsening symptoms Make sure you are staying hydrated enough to urinate and have normal BM's Recheck with your PCM/OBGYN in 2-3 days Consider consult with Gastroenterology for ongoing/worsening symptoms Return to the ED with any worsening symptoms and/or development of fever, heada mara, chest pain, palpitations, syncope, shortness of breath, trouble breathing, abdominal pain, n/v/d, blood in stool/urine, weakness, or other worsening symptoms that are concerning to you. Forms: Elevated Blood Pressure Referrals: JESSICA MATA MD [Primary Care Provider] - Follow up as needed
[2018-08-18 16:56] LABS: ALANINE AMINOTRANSFERASE 11 U/L (9-52); ALBUMIN 4.3 g/dL (3.5-5.0); ALKALINE PHOSPHATASE 71 U/L (38-126); ANION GAP 9 (5-19); ASPARTATE AMINO TRANSFERASE 43 U/L (14-36); BILIRUBIN,DIRECT 0.2 mg/dL (0.0-0.4); BILIRUBIN,TOTAL 0.4 mg/dL (0.2-1.3); BLOOD UREA NITROGEN 4 mg/dL (7-20); CALCIUM 9.7 mg/dL (8.4-10.2); CARBON DIOXIDE 25 mmol/L (22-30); CHLORIDE 104 mmol/L (98-107); GLUCOSE 98 mg/dL (75-110); POTASSIUM 3.7 mmol/L (3.6-5.0); TOTAL PROTEIN 7.6 g/dL (6.3-8.2)
[2018-08-18 18:09] VITALS: BP 138/70
== END 2018-08-18 18:08 | disposition home or self-care (01) ==
LOC: ER 14:21
DX: O21.9 Vomiting of pregnancy, unspecified (principal); Z3A.18 18 weeks gestation of pregnancy; Z87.891 Personal history of nicotine dependence
CPT/HCPCS: 99284; 96361; 96374; 36415; 84702; 85025; 80053; 81001; J2405; J7030

== ENCOUNTER 2018-12-03 10:57 | Outpatient (CLI) | payer MEDICAID ==
[2018-12-03 11:33] LABS: ABSOLUTE LYMPHOCYTES (AUTO) 1.8 10^3/uL (0.5-4.7); ABSOLUTE MONOCYTES (AUTO) 0.5 10^3/uL (0.1-1.4); BASOPHILS % (AUTO) 0.4 % (0-2); EOSINOPHILS % (AUTO) 0.6 % (0-6); HEMATOCRIT 35.5 % (36.0-47.0); HEMOGLOBIN 11.3 g/dL (12.0-15.5); MEAN CORPUSCULAR HGB CONC 31.9 g/dL (32.0-36.0); MEAN CORPUSCULAR VOLUME 78 fl (80-97); MONOCYTES % (AUTO) 5.4 % (3-13); RED BLOOD COUNT 4.54 10^6/uL (3.72-5.28); RED CELL DISTRIBUTION WIDTH 14.7 % (11.5-14.0); SEGMENTED NEUTROPHILS % (AUTO) 71.6 % (42-78); TOTAL CELLS COUNTED % (AUTO) 100 %; WHITE BLOOD COUNT 8.4 10^3/uL (4.0-10.5)
[2018-12-03 11:47] LABS: APPEARANCE,URINE CLOUDY; BILIRUBIN,URINE SMALL (NEGATIVE); COLOR,URINE AMBER; GLUCOSE, URINE 50 mg/dL (NEGATIVE); KETONES,URINE TRACE mg/dL (NEGATIVE); LEUKOCYTE ESTERASE,URINE NEGATIVE (NEGATIVE); NITRITE,URINE NEGATIVE (NEGATIVE); PROTEIN,URINE 100 mg/dL (NEGATIVE); URINE SPECIFIC GRAVITY 1.029
[2018-12-03 11:52] LABS: PLATELET COUNT 174 10^3/uL (150-450)
[2018-12-03 11:56] LABS: ALANINE AMINOTRANSFERASE 18 U/L (9-52); ALBUMIN 3.2 g/dL (3.5-5.0); ALKALINE PHOSPHATASE 127 U/L (38-126); AMYLASE 111 U/L (30-110); ANION GAP 8 (5-19); ASPARTATE AMINO TRANSFERASE 18 U/L (14-36); BILIRUBIN,DIRECT 0.2 mg/dL (0.0-0.4); BILIRUBIN,TOTAL 0.3 mg/dL (0.2-1.3); BLOOD UREA NITROGEN 6 mg/dL (7-20); CALCIUM 9.6 mg/dL (8.4-10.2); CARBON DIOXIDE 22 mmol/L (22-30); CHLORIDE 106 mmol/L (98-107); GLUCOSE 118 mg/dL (75-110); LIPASE 61.9 U/L (23-300); POTASSIUM 4.1 mmol/L (3.6-5.0); SODIUM 136.1 mmol/L (137-145); TOTAL PROTEIN 6.1 g/dL (6.3-8.2)
[2018-12-03 13:00] LABS: APPEARANCE,URINE SLIGHTLY-CLOUDY; BILIRUBIN,URINE NEGATIVE (NEGATIVE); GLUCOSE, URINE 50 mg/dL (NEGATIVE); KETONES,URINE TRACE mg/dL (NEGATIVE); LEUKOCYTE ESTERASE,URINE NEGATIVE (NEGATIVE); NITRITE,URINE NEGATIVE (NEGATIVE); PROTEIN,URINE 30 mg/dL (NEGATIVE); URINE SPECIFIC GRAVITY 1.026
[2018-12-03 13:01] LABS: COLOR,URINE YELLOW
[2018-12-03 13:42] LABS: URINE AMPHETAMINES SCREEN NEGATIVE; URINE BARBITURATES SCREEN NEGATIVE; URINE BENZODIAZEPINES SCREEN NEGATIVE; URINE COCAINE SCREEN NEGATIVE; URINE MARIJUANA (THC) SCREEN NEGATIVE; URINE METHADONE SCREEN NEGATIVE; URINE PHENCYCLIDINE SCREEN NEGATIVE
--- NOTE | 2018-12-03 14:34 | Non Stress Test Report ---
Non Stress Test Datetime Report Generated by [facility]: 12/03/2018 14:34 DEMOGRAPHIC EGA NST: 33.6 INDICATION Indication for Study: Ordered by Provider; Other Indication for Study (NST) Other: LC VITAL SIGNS Temperature - NST: 98.2 Pulse - NST: 96 RESP - NST: 17 NBPSYS NST: 123 NBPDIA NST: 71 MONITORING Monitor Explained: Monitor Explained; Test Explained; Patient Verbalized Understanding Time on Monitor: 12/03/2018 12:21 Time off Monitor: 12/03/2018 12:41 NST Duration: 20 NST INTERVENTIONS NST Interventions: PO Hydration; IV Fluids; Meal Given Physician Notified NST: Nilsa Perry, CNM BABY A: [id number] BABY A Movement : Present Contraction Frequency : irregular FHR Baseline : 140 Accelerations : 15X15 Decelerations : None Variability : Moderate 6-25bpm NST Review: Meets Criteria for Reactive NST NST Review and Verified By : Deidra Barreto RN NST Results: Reactive NST REPORT Report Trigger: Send Report
== END 2018-12-03 14:23 | disposition home or self-care (01) ==
LOC: LC 10:57
PROVIDERS: ATTEND Obstetrics & Gynecology
PROC: 4A1HXCZ Monitoring of Products of Conception, Cardiac Rate, External Approach (ICD-10-PCS; principal; 2018-12-03)
DX: O99.283 Endocrine, nutritional and metabolic diseases complicating pregnancy, third trimester (principal); O21.2 Late vomiting of pregnancy; E86.0 Dehydration; Z3A.33 33 weeks gestation of pregnancy
CPT/HCPCS: 36415; 59025; 80053; 80307; 81001; 82150; 83690; 85025

== ENCOUNTER 2019-01-13 03:38 | Inpatient (IN) | payer MEDICAID ==
[2019-01-13] MEDS ORDERED: OXYTOCIN 10 UNIT/ML VIAL ONE (03:46)
[2019-01-13] MEDS ORDERED: MISOPROSTOL 0.2 MG TABLET ONE (03:46)
[2019-01-13] MEDS ORDERED: LIDOCAINE 1% INJ-PF (10 MG/ML) 30 ML SDV ONE (03:46)
[2019-01-13] MEDS ORDERED: OXYTOCIN/NORMAL SALINE 20 UNIT/1,000 ML RTUINJ ONE (03:47)
[2019-01-13] MEDS ORDERED: RINGERS SOLUTION,LACTATED 1,000 ML IV PRN (03:51)
[2019-01-13] MEDS ORDERED: RINGERS SOLUTION,LACTATED 1,000 ML IV ONE (03:51)
[2019-01-13 04:24] LABS: ABSOLUTE EOSINOPHILS # (AUTO) 0.1 10^3/uL (0.0-0.6); ABSOLUTE LYMPHOCYTES (AUTO) 2.4 10^3/uL (0.5-4.7); ABSOLUTE MONOCYTES (AUTO) 0.5 10^3/uL (0.1-1.4); ABSOLUTE NEUT (AUTO) 4.3 10^3/uL (1.7-8.2); BASOPHILS % (AUTO) 0.2 % (0-2); EOSINOPHILS % (AUTO) 0.9 % (0-6); HEMATOCRIT 36.8 % (36.0-47.0); HEMOGLOBIN 11.6 g/dL (12.0-15.5); MEAN CORPUSCULAR HGB CONC 31.5 g/dL (32.0-36.0); MEAN CORPUSCULAR VOLUME 79 fl (80-97); MONOCYTES % (AUTO) 7.5 % (3-13); RED BLOOD COUNT 4.64 10^6/uL (3.72-5.28); RED CELL DISTRIBUTION WIDTH 15.1 % (11.5-14.0); SEGMENTED NEUTROPHILS % (AUTO) 58.4 % (42-78); TOTAL CELLS COUNTED % (AUTO) 100 %; WHITE BLOOD COUNT 7.3 10^3/uL (4.0-10.5)
[2019-01-13] MEDS ORDERED: VANCOMYCIN HCL INJ 1000 MG VIAL ONE ×2 (04:25→15:06)
[2019-01-13 04:35] LABS: APPEARANCE,URINE TURBID; BILIRUBIN,URINE NEGATIVE (NEGATIVE); COLOR,URINE AMBER; GLUCOSE, URINE NEGATIVE (NEGATIVE); KETONES,URINE NEGATIVE (NEGATIVE); LEUKOCYTE ESTERASE,URINE NEGATIVE (NEGATIVE); NITRITE,URINE NEGATIVE (NEGATIVE); PROTEIN,URINE 30 mg/dL (NEGATIVE); URINE SPECIFIC GRAVITY 1.006; UROBILINOGEN,URINE NEGATIVE mg/dL (<2.0)
[2019-01-13] MEDS ORDERED: NALBUPHINE HCL INJ 10 MG/1 ML AMPULE INJ ONE (04:36)
[2019-01-13 04:42] LABS: PLATELET COUNT 94 10^3/uL (150-450)
[2019-01-13] MEDS: VANCOMYCIN HCL 1,000 MG in DEXTROSE 5%-WATER 250 ML IV SCH ×2 (04:44→18:34)
[2019-01-13] MEDS ORDERED: NALBUPHINE HCL INJ 10 MG/1 ML AMPULE ONE (04:49)
[2019-01-13 05:04] LABS: URINE AMPHETAMINES SCREEN NEGATIVE; URINE BARBITURATES SCREEN NEGATIVE; URINE BENZODIAZEPINES SCREEN NEGATIVE; URINE COCAINE SCREEN NEGATIVE; URINE MARIJUANA (THC) SCREEN NEGATIVE; URINE METHADONE SCREEN NEGATIVE; URINE PHENCYCLIDINE SCREEN NEGATIVE
[2019-01-13] MEDS ORDERED: OXYTOCIN/NORMAL SALINE 20 UNIT/1,000 ML RTUINJ IV PRN (07:26)
--- NOTE | 2019-01-13 07:40 | Admission Physical ---
Datetime Report Generated by [facility]: 01/13/2019 07:40 CURRENT ADMISSION Chief Complaint: Uterine Contractions; Suspected Ruptured Membranes Indication for Induction: PROM Admit Impression : Term, Intrauterine ; No Active Labor; Ruptured Membranes; Induction of Labor Admit Plan: Admit to Unit; Initiate Labor Induction Protocol (Annotations: Data stored by [facility] on behalf of user) ALLERGIES Medication Allergies: Yes Medication Allergies: Penicillins (01/13/2019); naproxen/VOMITING (01/13/2019); cephalexin (01/13/2019); clindamycin/MO/burning, SOB (01/13/2019) Latex: No Latex Allergies Food Allergies: none Environmental Allergies: none OBSTETRICAL HISTORY EDC: 01/15/2019 00:00 : 1 Para: 0 Term: 0 : 0 SAB: 0 IAB: 0 Ectopic: 0 Livin Cesareans: 0 VBACs: 0 Multiple Births: 0 Gestational Diabetes: No Rh Sensitization: No Incompetent Cervix: No DEEPA: No Infertility: No ART Treatment: No Uterine Anomaly: No IUGR: No Hx Previous C/S: No Macrosomia: No Hx Loss/Stillborn: No PIH: No Hx : No Placenta Previa/Abruption: No Depression/PP Depression: No PTL/PROM: No Post Hemorrhage: No Current Procedures: Ultrasound; NST Obstetrical History Comments: G1- current SEE RECORDS Alcohol: No Marijuana : No Cocaine: No Other Illicit Drugs: No Cigarettes: Former Smoker. [id number] MEDICAL HISTORY Diabetes: No Blood Transfusion: No Pulmonary Disease (Asthma, TB): No Breast Disease: No Hypertension: No Permit Specialist Surgery: No Heart Disease: No Hosp/Surgery: No Autoimmune Disorder: No Anesthetic Complications: No Kidney Disease: Yes Abnormal Pap Smear: No Neuro/Epilepsy: No Psychiatric Disorders: No Other Medical Diseases: No Hepatitis/Liver Disease: No Significant Family History: No Varicosities/Phlebitis: No Trauma/Violence : No Thyroid Dysfunction: No INFECTIOUS HISTORY Gonorrhea: No Genital Herpes: Yes Chlamydia: No Tuberculosis: No Syphilis: No Hepatitis: No HIV/AIDS Exposure: No Rash or Viral Illness: No HPV: No Infectious History Comments: hx of HSV, pt states last outbreak was a year ago (01/13/2019) PHYSICAL EXAM General: Normal HEENT: Normal Neurologic: Normal Thyroid: Deferred Heart: Normal Lungs: Normal Breast: Deferred Back: Normal Abdomen: Normal Genitourinary Exam: Normal Extremities: Normal DTRs: Normal Pelvic Type: Adequate Physical Exam Comments: no lesion on exam, no prodrome Vital Signs: Reviewed VAGINAL EXAM Dilatation: 1 Effacement: 90 Station: -2 Contraction Comments: irreg [facility] Membranes: Ruptured Amniotic Fluid Color: Meconium, Light FETUS A EGA: 39.5 Monitoring: External US FHR- Baseline: 120 Variability: Moderate 6-25bpm Accelerations: 15X15 FHR Category: Category I Presentation: Vertex Admit Comment: 33yo at 39+5ega presents for SROM at 0300 with moderate meconium. /-2. 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 Pt has been on Valtrex since 35wks with no lesions and no prodrome on exam. Augmentation with pitocin ordered. She desires BTL. GBS pos - PCN and Clinda allergy. Will give Vanc for GBS prophy. ELevated BPs now - will check PIH labs. Also noted on initiate CBC was low platlets - will dulce platlets and notify anesthesia. May not be able to have epidural. Anticipate . PLANS FOR LABOR AND DELIVERY Labor and Delivery: None Pain Management: None Feeding Preference: Formula Benefit of Breast Feed Discussed: Yes Circumcision: N/A INFORMED CONSENT Informed Consent Obtained: Vaginal Delivery; Risks, Benefits and Alternatives Discussed Signature: with User ID: [email or web address]
[2019-01-13 08:25] LABS: ABSOLUTE LYMPHOCYTES (AUTO) 1.6 10^3/uL (0.5-4.7); ABSOLUTE MONOCYTES (AUTO) 0.5 10^3/uL (0.1-1.4); ABSOLUTE NEUT (AUTO) 6.7 10^3/uL (1.7-8.2); BASOPHILS % (AUTO) 0.2 % (0-2); EOSINOPHILS % (AUTO) 0.1 % (0-6); HEMATOCRIT 39.5 % (36.0-47.0); HEMOGLOBIN 12.3 g/dL (12.0-15.5); LYMPHOCYTES % (AUTO) 18.5 % (13-45); MEAN CORPUSCULAR HEMOGLOBIN 25.1 pg (27.0-33.4); MEAN CORPUSCULAR HGB CONC 31.2 g/dL (32.0-36.0); MEAN CORPUSCULAR VOLUME 81 fl (80-97); MONOCYTES % (AUTO) 5.5 % (3-13); RED CELL DISTRIBUTION WIDTH 15.3 % (11.5-14.0); SEGMENTED NEUTROPHILS % (AUTO) 75.7 % (42-78); TOTAL CELLS COUNTED % (AUTO) 100 %; WHITE BLOOD COUNT 8.9 10^3/uL (4.0-10.5)
[2019-01-13 08:41] LABS: ALANINE AMINOTRANSFERASE 18 U/L (9-52); ALBUMIN 3.2 g/dL (3.5-5.0); ALKALINE PHOSPHATASE 184 U/L (38-126); ANION GAP 9 (5-19); ASPARTATE AMINO TRANSFERASE 21 U/L (14-36); BILIRUBIN,DIRECT 0.2 mg/dL (0.0-0.4); BILIRUBIN,TOTAL 0.3 mg/dL (0.2-1.3); BLOOD UREA NITROGEN 13 mg/dL (7-20); CALCIUM 9.9 mg/dL (8.4-10.2); CARBON DIOXIDE 19 mmol/L (22-30); CHLORIDE 108 mmol/L (98-107); GLUCOSE 100 mg/dL (75-110); POTASSIUM 4.9 mmol/L (3.6-5.0); TOTAL PROTEIN 6.3 g/dL (6.3-8.2); URIC ACID 4.9 mg/dL (2.5-6.2)
[2019-01-13 08:50] LABS: PLATELET COUNT 102 10^3/uL (150-450)
[2019-01-13] MEDS ORDERED: EPHEDRINE SULFATE INJ 50 MG/1 ML AMPULE ONE (09:24)
[2019-01-13] MEDS ORDERED: FENTANYL/BUPIVACAINE/NS/PF 300 MCG/150 ML RTUINJ EPI ONE (09:25)
[2019-01-13] MEDS ORDERED: BUPIVACAINE HCL 0.25 % INJ/PF (2.5 MG/1 ML) 30 ML VIAL ONE (09:25)
[2019-01-13] MEDS: CETIRIZINE 10 MG TABLET PO SCH (10:51)
[2019-01-13] MEDS ORDERED: ACETAMINOPHEN 650 MG SUPP.RECT PR PRN (16:25)
[2019-01-13] MEDS ORDERED: PROMETHAZINE HCL 25 MG SUPP.RECT PR PRN (16:25)
[2019-01-13] MEDS ORDERED: OXYTOCIN/NORMAL SALINE 1,000 ML IV PRN (16:25)
[2019-01-13] MEDS ORDERED: NA PHOS,M-B/NA PHOS,DI-BA (ADULT) 133 ML ENEMA PR PRN (16:25)
[2019-01-13] MEDS ORDERED: MEASLES,MUMPS&RUBELLA VACC/PF 0.5 ML VIAL SUBCUT PRN (16:25)
[2019-01-13] MEDS ORDERED: GLYCERIN/WITCH HAZEL LEAF 1 EACH MED..WIPE TP PRN (16:25)
[2019-01-13] MEDS ORDERED: BENZOCAINE/MENTHOL AEROSOL SPRAY 56 ML TOP PRN (16:25)
[2019-01-13] MEDS ORDERED: MAGNESIUM HYDROXIDE SUSP 30 ML UDCUP PO PRN (16:25)
[2019-01-13] MEDS ORDERED: DIPH/PERTUSS(ACELL)/TETANUS VAC/PF 0.5 ML SYR (>=10YO) IM PRN (16:25)
[2019-01-13] MEDS ORDERED: ZOLPIDEM TARTRATE 5 MG TABLET PO PRN (16:25)
[2019-01-13] MEDS ORDERED: PROMETHAZINE HCL INJ 25 MG/1 ML VIAL IV PRN (16:25)
[2019-01-13] MEDS ORDERED: PROMETHAZINE HCL 25 MG TABLET PO PRN (16:25)
[2019-01-13] MEDS ORDERED: DIPHENHYDRAMINE HCL 25 MG CAPSULE PO PRN (16:25)
[2019-01-13] MEDS ORDERED: ACETAMINOPHEN WITH CODEINE #3 TABLET PO PRN (16:25)
[2019-01-13] MEDS ORDERED: DIBUCAINE 1% OINTMENT 56 GM TP PRN (16:25)
[2019-01-13] MEDS ORDERED: PSEUDOEPHEDRINE HCL 30 MG TABLET PO PRN (16:25)
--- NOTE | 2019-01-13 16:25 | Warning Signs in Babies ---
VOD Warning Signs Datetime Report Generated by [facility]: 01/13/2019 16:25 VOD#608 -Warning Signs in Babies: Viewed with Parent(s)/Family (01/13/2019 16:00:Heena Hill RN)
--- NOTE | 2019-01-13 17:29 | Delivery Summary ---
Del Sum A-C Datetime Report Generated by CPN: 01/13/2019 17:28 DELIVERY PERSONNEL DELIVERY PERSONNEL: [id number] Delivery Doctor:: aNomi Hathaway CNM Labor and Delivery Nurse:: Heena Hill RNmarine cargo surveyor Nurse:: Ladan Echevarria RN Nursery Nurse:: Sakina Patrick RN Nursery Nurse:: Charito Miller RN Student Observers:: ST Manuel ALEGRIA Trust Administrator/MANAGER ORDER: ST Lola Trust Administrator/MANAGER ORDER: Sparkle Harp, ROLL UP HELPER MATERNAL INFORMATION Delivery Anesthesia: Epidural Medications After Delivery: Pitocin Bolus-Please Comment; Pitocin Drip 20 Units/1000ml NSS Estimated Blood Loss (ml): 100 Delivery QBL: 100 Maternal Complications: Other Complication Details: LOW PLATELETS Provider Comments: Called to room 6, patient completely dilated and beginning to push. Head delivered by CNM, loose nuchal cord x 1 reduced, then body delivered by Dr Howard at 1549 under epidural anesthesia. Cord clamped x, then cut by female relative, and taken to warmer by Dr Howard. Nursery staff present to care for infant. Apgars 8-9. 3 vessel cord. Placenta, membranes, and cord expelled at 1555, Canales presentation, grossly intact. Perineum intact. Small abrasion at periurethral-no repair needed. FF at U-3, deep. Patient tolerated procedure well. LABOR SUMMARY EDC: 01/15/2019 00:00 No. Babies in Womb: 1 Attempted: No Labor Anesthesia: Epidural LABOR INFORMATION Reason for Induction: Not Applicable Onset of Labor: 01/13/2019 03:52 Complete Dilatation: 01/13/2019 15:27 Oxytocin: Augmentation Group B Beta Strep: pos Antibiotics # of Doses: 1 Antibiotics Time of Last Dose: 0444 Name of Antibiotic Given: vancomycin Steroids Given: None Reason Steroids Not Administered: Not Applicable MEMBRANES Membranes Rupture Method: Spontaneous Rupture of Membranes: 01/13/2019 03:52 Length of Rupture (hr): 11.95 Amniotic Fluid Color: Moderate Meconium STAGES OF LABOR Stage 1 hr: 11 Stage 1 min: 35 Stage 2 hr: 0 Stage 2 min: 22 Stage 3 hr: 0 Stage 3 min: 6 Total Time in Labor hr: 12 Total Time in Labor min: 3 VAGINAL DELIVERY Episiotomy: None Laceration #1: None Other Laceration: SUPERFICIAL ABRASIONS Laceration Repair: No Sponge Count Correct: N/A Sharps Count Correct: Yes CSECTION DELIVERY Primary Indication: N/A Secondary Indication: N/A CSection Incidence: N/A Labor: N/A Elective: N/A CSection Incision: N/A BABY A INFORMATION Infant Delivery Date/Time: 01/13/2019 15:49 Method of Delivery: Vaginal Born in Route : No : N/A Forceps: N/A Vacuum Extraction: N/A Shoulder Dystocia : No PRESENTATION/POSITION BABY A Presentation: Cephalic Cephalic Presentation: Vertex Vertex Position: Left Occipital Anterior Breech Presentation: N/A PLACENTA INFORMATION BABY A Placenta Delivery Time : 01/13/2019 15:55 Placenta Method of Delivery: Spontaneous Placenta Status: Delivered SCORES BABY A Heart Rate 1 min: >100 bpm Resp Effort 1 min: Good Cry Reflex Irritability 1 min: Cough or Sneeze or Pulls Away Muscle Tone 1 min: Active Motion Color 1 min: Blue/Pale Resuscitation Effort 1 min: Tactile Stimulation SCORE 1 MIN: 8 Heart Rate 5 min: >100 bpm Resp Effort 5 min: Good Cry Reflex Irritability 5 min: Cough or Sneeze or Pulls Away Muscle Tone 5 min: Active Motion Color 5 min: Body [place], Extremities Blue Resuscitation Effort 5 min: Tactile Stimulation SCORE 5 MIN: 9 INFANT INFORMATION BABY A Gestational Age at Delivery: 39.5 Gestational Status: Full Term- 39- 40.6 Weeks Outcome : Liveborn Infant Condition : Stable Sex: Female IDENTIFICATION BABY A Verification Date/Time: 01/13/2019 16:04 ID Band Number: [id number] Mother's Name Verified: Yes RN Verifying Infant: Elizabeth Hill RN Additional Verifying Personnel: SepidehChelsi Lew ROLL UP HELPER CORD INFORMATION BABY A No. Cord Vessels: 3 Nuchal Cord : Around Neck x1, Loose Cord Blood Taken: Yes-For Storage (Mom's Blood type +) Infant Suction: Mouth; Nose ASSESSMENT BABY A Complications: Multiple Late Decels; Multiple Variable Decels; Meconium Physical Findings at Delivery: Caput Succedaneum; Molding of the Head Infant Respirations: Appears Normal Skin to Skin: Yes Wallcovering Texturer/ALS Called : No Care By: Roxanne PATRICK RN/ Vernon MILLER RN Transferred To: Remains with Mother BABY B INFORMATION : N/A SIGNATURES Assignment: Mary Alonso MD Signature: with User ID: La : with User ID: La : I personally evaluated and examined the patient in conjunction with the MLP and agree with the assessment, treatment plan and disposition.
[2019-01-13] MEDS: DOCUSATE SODIUM 100 MG CAPSULE PO SCH (18:47)
[2019-01-13] MEDS: FERROUS SULFATE 325 MG TABLET PO SCH (18:47)
[2019-01-13] MEDS: ACETAMINOPHEN WITH CODEINE #3 TABLET PO PRN (21:19)
[2019-01-13] MEDS: FAMOTIDINE 20 MG TABLET PO SCH (21:19)
[2019-01-13] MEDS: IBUPROFEN 800 MG TABLET PO SCH (21:22)
[2019-01-14] MEDS: ACETAMINOPHEN WITH CODEINE #3 TABLET PO PRN ×2 (06:04→09:58)
[2019-01-14] MEDS: IBUPROFEN 800 MG TABLET PO SCH ×3 (06:09→22:28)
[2019-01-14 06:56] LABS: HEMATOCRIT 32.8 % (36.0-47.0); MEAN CORPUSCULAR HEMOGLOBIN 24.6 pg (27.0-33.4); MEAN CORPUSCULAR HGB CONC 31.1 g/dL (32.0-36.0); MEAN CORPUSCULAR VOLUME 79 fl (80-97); RED BLOOD COUNT 4.14 10^6/uL (3.72-5.28); RED CELL DISTRIBUTION WIDTH 15.3 % (11.5-14.0); WHITE BLOOD COUNT 11.4 10^3/uL (4.0-10.5)
[2019-01-14 08:23] LABS: HEMOGLOBIN 10.2 g/dL (12.0-15.5); PLATELET COUNT 85 10^3/uL (150-450)
[2019-01-14 08:39] LABS: HSV-I IGG AB <0.91 index (0.00-0.90)
--- NOTE | 2019-01-14 09:28 | PDOC PROGRESS REPORT ---
Subjective-OB Progress Note for:: 01/14/19 Subjective: pt has no complaints Physical Exam (OB) Vital Signs: Temp Pulse Resp BP Pulse Ox 98.1 F 74 16 131/82 H 100 01/14/19 08:15 01/14/19 08:15 01/14/19 08:15 01/14/19 08:15 01/14/19 08:15 Intake & Output 01/13/19 01/14/19 01/15/19 06:59 06:59 06:59 Intake Total 1250 Balance 1250 Weight 102.1 kg - General General Appearance: Appears well - PIH/Pre-Eclampsia DTR's: 1 + Clonus: Negative Headache: Absent Epigastric Pain: No Visual Changes: No - Lochia Lochia Amount: Scant < 10 ml Lochia Color: Rubra/Red - Abdomen Description: Soft, Round Hernia Present: No Fundal Description: Firm, Midline Fundal Height: u/u - u/2 - Respiratory Breath sounds: Clear - Extremities Calf: Nontender Objective-Diagnostic Laboratory: 01/14/19 06:22 01/13/19 07:49 01/14/19 06:22 WBC 11.4 H RBC 4.14 Hgb 10.2 L D Hct 32.8 L MCV 79 L MCH 24.6 L MCHC 31.1 L RDW 15.3 H Plt Count 85 L Assessment and Plan(PN) - Assessment and Plan (1) Normal vaginal delivery Is this a current diagnosis for this admission?: Yes - Time Spent with Patient Time with patient: Less than 15 minutes - Disposition Anticipated Discharge: Home Within: within 24 hours
[2019-01-14] MEDS: CETIRIZINE 10 MG TABLET PO SCH (09:57)
[2019-01-14] MEDS: PRENATAL VITAMIN W DHA CAPSULE PO SCH (09:57)
[2019-01-14] MEDS: DOCUSATE SODIUM 100 MG CAPSULE PO SCH ×2 (09:57→17:19)
[2019-01-14] MEDS: FERROUS SULFATE 325 MG TABLET PO SCH ×2 (09:57→17:19)
[2019-01-14] MEDS: FAMOTIDINE 20 MG TABLET PO SCH ×2 (09:57→22:29)
[2019-01-14] MEDS: SENNOSIDES/DOCUSATE 8.6-50 MG 1 EACH TABLET PO SCH (09:57)
[2019-01-15] MEDS: ACETAMINOPHEN WITH CODEINE #3 TABLET PO PRN ×2 (04:31→13:40)
[2019-01-15] MEDS: IBUPROFEN 800 MG TABLET PO SCH ×2 (05:12→15:03)
[2019-01-15] MEDS: PRENATAL VITAMIN W DHA CAPSULE PO SCH (09:48)
[2019-01-15] MEDS: SENNOSIDES/DOCUSATE 8.6-50 MG 1 EACH TABLET PO SCH (09:48)
[2019-01-15] MEDS: FERROUS SULFATE 325 MG TABLET PO SCH (09:48)
[2019-01-15] MEDS: DOCUSATE SODIUM 100 MG CAPSULE PO SCH (09:48)
[2019-01-15] MEDS: CETIRIZINE 10 MG TABLET PO SCH (09:49)
[2019-01-15] MEDS: FAMOTIDINE 20 MG TABLET PO SCH (09:49)
[2019-01-15 09:57] VITALS: BP 127/88
--- NOTE | 2019-01-15 10:18 | PDOC DISCHARGE SUMMARY ---
Final Diagnosis Discharge Date: 01/15/19 - Final Diagnosis (1) Normal vaginal delivery Is this a current diagnosis for this admission?: Yes (2) Carrier of group B Streptococcus Is this a current diagnosis for this admission?: Yes (3) H/O herpes genitalis Is this a current diagnosis for this admission?: Yes (4) Thrombocytopenia affecting Is this a current diagnosis for this admission?: Yes Discharge Data - Discharge Medication Prescriptions: Acetaminophen with Codeine [Tylenol #3 Tablet] 1 each PO Q4HP PRN #30 tablet PRN Reason: Home Medications: Vits96/Iron Fum/Folic [ Tablet] 1 tab PO DAILY 12/03/18 Acetaminophen with Codeine [Tylenol #3 Tablet] 1 each PO Q4HP PRN #30 tablet 01/15/19 Procedures: NST Intrapartum Procedure(s): Spontaneous Vaginal Delivery - Diagnosis Test Laboratory: Temp Pulse Resp BP Pulse Ox 98.0 F 78 18 127/88 H 100 01/15/19 09:56 01/15/19 09:56 01/15/19 09:56 01/15/19 09:56 01/15/19 09:56 01/13/19 01/13/19 01/13/19 04:09 04:09 07:49 RBC 4.64 4.90 Hgb 11.6 L 12.3 Hct 36.8 39.5 Urine Opiates Screen NEGATIVE 01/14/19 06:22 RBC 4.14 Hgb 10.2 L D Hct 32.8 L Urine Opiates Screen - Discharge information/Instructions Discharge Activity: Balance Activity w/Rest, Pelvic Rest Discharge Diet: Regular Disposition: HOME, SELF-CARE Follow up with: [facility] in: 1, Weeks - Platelet check
== END 2019-01-15 16:05 | disposition home or self-care (01) | DRG 806 ==
LOC: LC 03:38 → LR 03:56 → 2S 17:52
PROVIDERS: ADMIT Obstetrics & Gynecology; ATTEND Obstetrics & Gynecology
PROC: 10E0XZZ Delivery of Products of Conception, External Approach (ICD-10-PCS; principal; 2019-01-13)
DX: O42.02 Full-term premature rupture of membranes, onset of labor within 24 hours of rupture (principal); O99.12 Other diseases of the blood and blood-forming organs and certain disorders involving the immune mechanism complicating childbirth; Z37.0 Single live birth; O77.0 Labor and delivery complicated by meconium in amniotic fluid; O69.81X0 Labor and delivery complicated by cord around neck, without compression, not applicable or unspecified; O99.824 Streptococcus B carrier state complicating childbirth; O76 Abnormality in fetal heart rate and rhythm complicating labor and delivery; D69.6 Thrombocytopenia, unspecified; Z3A.39 39 weeks gestation of pregnancy
CPT/HCPCS: 36415; 80053; 80307; 81005; 83615; 84550; 85025; 85027; 86592; 86695; 86850; 86900; 86901; 88307; 94760; J2300; J2590; J3010; J3370; J3490; J7060

== ENCOUNTER 2019-03-04 05:22 | Day surgery (SDC) | payer MEDICAID ==
[2019-03-03 09:57] LABS: HEMATOCRIT 38.4 % (36.0-47.0); HEMOGLOBIN 11.9 g/dL (12.0-15.5); MEAN CORPUSCULAR HEMOGLOBIN 24.3 pg (27.0-33.4); MEAN CORPUSCULAR HGB CONC 31.1 g/dL (32.0-36.0); MEAN CORPUSCULAR VOLUME 78 fl (80-97); PLATELET COUNT 147 10^3/uL (150-450); RED BLOOD COUNT 4.91 10^6/uL (3.72-5.28); WHITE BLOOD COUNT 6.9 10^3/uL (4.0-10.5)
[2019-03-03 09:59] LABS: APPEARANCE,URINE CLEAR; BILIRUBIN,URINE NEGATIVE (NEGATIVE); COLOR,URINE STRAW; GLUCOSE, URINE NEGATIVE (NEGATIVE); KETONES,URINE NEGATIVE (NEGATIVE); LEUKOCYTE ESTERASE,URINE NEGATIVE (NEGATIVE); NITRITE,URINE NEGATIVE (NEGATIVE); PROTEIN,URINE NEGATIVE (NEGATIVE); URINE SPECIFIC GRAVITY 1.011; UROBILINOGEN,URINE NEGATIVE mg/dL (<2.0)
[~2019-03-04 05:22] MED LIST: LACTATED RINGERS 1000 ML IV PRN; LIDOCAINE 0.5% INJ-PF (5 MG/ML) 50 ML SDV SUBCUT PRN
[2019-03-04] MEDS ORDERED: ALBUTEROL SULFATE 0.083% NEB 2.5 MG/3 ML AMPUL NEB ONE (07:16)
[2019-03-04] MEDS ORDERED: MIDAZOLAM 2 MG/2 ML INJ ONE (07:21)
[2019-03-04] MEDS ORDERED: PROPOFOL INJ 200 MG/20 ML VIAL IV ONE (07:21)
[2019-03-04] MEDS ORDERED: FENTANYL CITRATE INJ/PF 100 MCG/2 ML AMPUL ONE ×2 (07:21→08:49)
[2019-03-04] MEDS ORDERED: SCOPOLAMINE HYDROBROMIDE 1.5 MG PATCH.TD72 ONE (07:22)
[2019-03-04] MEDS ORDERED: FAMOTIDINE INJ/PF 20 MG/2 ML SDV IV ONE (07:22)
[2019-03-04] MEDS ORDERED: PROMETHAZINE HCL INJ 25 MG/1 ML VIAL IV PRN ×2 (08:11)
[2019-03-04] MEDS ORDERED: DIPHENHYDRAMINE HCL 50 MG/ML VIAL IV PRN (08:11)
[2019-03-04] MEDS ORDERED: FENTANYL CITRATE INJ/PF 100 MCG/2 ML AMPUL IV PRN ×3 (08:11)
[2019-03-04] MEDS ORDERED: ONDANSETRON HCL INJ/PF 4 MG/2 ML SDV IV PRN (08:11)
[2019-03-04] MEDS ORDERED: OXYCODONE-ACETAMINOPHEN 5-325 MG TABLET PO PRN ×2 (08:28)
[2019-03-04] MEDS ORDERED: RINGERS SOLUTION,LACTATED 1,000 ML IV PRN (08:28)
--- NOTE | 2019-03-04 08:32 | Operative Report ---
Operative Report DATE OF SURGERY: 03/04/19 PREOPERATIVE DIAGNOSIS: Patient desires tubal ligation with Filshie clips POSTOPERATIVE DIAGNOSIS: Same OPERATION: Laparoscopic bilateral Filshie clip application SURGEON: MITCHELL JACKSON ANESTHESIA: GA TISSUE REMOVED OR ALTERED: Fallopian tubes COMPLICATIONS: None ESTIMATED BLOOD LOSS: Minimal INTRAOPERATIVE FINDINGS: Normal uterus tubes and ovaries PROCEDURE: Patient was taken the OR and placed in supine position. General anesthesia was induced. She is placed in dorsolithotomy position using Chava stirrups. Her perineum vagina and abdomen were prepared and draped in sterile fashion. A sponge stick was placed in the vagina for manipulation of the uterus. Catheterization was not needed as she voided just prior to the procedure. An incision was made at the umbilicus natural umbilical defect was identified and dilated with Fely clamp allowing a blunt port to be placed. Laparoscopy confirmed appropriate placement. The abdomen was insufflated with CO2 gas. View was very good. Each fallopian tube was identified and followed out to its fimbriated end and then Filshie clip placed at the mid isthmic portion bilaterally. At the end of the case the gas allowed to escape from the abdomen. The port was removed at the same time as the camera. The fascia at the umbilicus was closed with interrupted 2-0 Vicryl suture. The skin was closed with a running subcuticular 4-0 undyed Vicryl suture. Bandage was placed. Sponge stick was removed from the vagina. She is placed back in supine position. Brought out of anesthesia and taken to recovery room stable condition.
--- NOTE | 2019-03-04 08:35 | Discharge Summary ---
Discharge Summary (SDC) - Discharge Final Diagnosis: Patient desires laparoscopic tubal ligation Date of Surgery: 03/04/19 Discharge Date: 03/04/19 Condition: Good Referrals: JESSICA MATA MD [Primary Care Provider] - Discharge Activity: Activity As Tolerated, Pelvic Rest Report the Following to Your Physician Immediately: Increase in Pain, Fever over 101 Degrees
[2019-03-04] MEDS ORDERED: OXYCODONE-ACETAMINOPHEN 5-325 MG TABLET ONE (09:30)
[2019-03-04 11:30] VITALS: BP 120/73
[2019-03-04] MEDS ORDERED: SUCCINYLCHOLINE CHLORIDE INJ 200 MG/10 ML VIAL ONE (14:31)
[2019-03-04] MEDS ORDERED: KETOROLAC TROMETHAMINE 60 MG/2 ML SDV ONE (14:31)
[2019-03-04] MEDS ORDERED: ONDANSETRON HCL INJ/PF 4 MG/2 ML SDV ONE (14:31)
[2019-03-04] MEDS ORDERED: DEXAMETHASONE SOD PHOSPHATE INJ 4 MG/1 ML VIAL ONE (14:31)
[2019-03-04] MEDS ORDERED: METOCLOPRAMIDE HCL INJ/PF 10 MG/2 ML SDV ONE (14:31)
[2019-03-04] MEDS ORDERED: LIDOCAINE 2% INJ-PF (20 MG/ML) 2 ML AMPUL ONE (14:31)
== END 2019-03-04 10:45 | disposition home or self-care (01) ==
LOC: OROUT 05:22
PROVIDERS: ATTEND Obstetrics & Gynecology
DX: Z30.2 Encounter for sterilization (principal); Z87.891 Personal history of nicotine dependence
CPT/HCPCS: 36415; 85027; 81005; 81025; 00851; 58671; J2250; J1100; J1885; J3010; J3490 ×2; J2765; J0330; J2405; J2704; S0028; 851

== ENCOUNTER 2019-04-29 03:51 | Emergency (ER) | payer MEDICAID ==
[2019-04-29 04:02] VITALS: BP 145/88
== END 2019-04-29 05:35 | disposition left against medical advice (07) ==
LOC: ER 03:51
DX: Z53.21 Procedure and treatment not carried out due to patient leaving prior to being seen by health care provider (principal)